=== PATIENT | male | born 1935 | race Caucasian/White ===

== ENCOUNTER → 2020-04-30 15:41 | Outpatient (CLI) | payer MEDICARE, SELFPAY ==
[2020-04-30 17:47] LABS: Absolute Lymphocyte Count 2.12 X10^3/uL (0.83-4.51); Absolute Neutrophil Count 3.6 X10^3/uL (2.0-7.7); Basophil# 0.07 X10^3/uL; Eosinophil# 0.33 X10^3/uL; Eosinophils% 4.9 % (0-5); Hematocrit 42.1 % (40-54); Hemoglobin 13.3 g/dL (13.0-16.5); Lymphocyte # 2.12 X10^3/ul (4.0); Lymphocyte % 31.8 % (19-41); Mean Corp Hgb Conc 31.6 g/dL (32-36); Mean Corpuscular Hgb 31.3 pg (27.0-32.0); Mean Corpuscular Volume 99.1 fL (80-94); Mean Platelet Vol. 10.9 fl (6.2-12.0); Monocyte# 0.52 X10^3/uL; Monocyte% 7.8 % (0-10); NRBC Flagged by Analyzer 0 % (0-5); Neutrophil # 3.59 X10^3/uL (2.7-7.7); Neutrophil % 53.9 % (47-70); Platelet Count 227 K/mm3 (150-450); RBC Distribution Width CV 14.1 % (11.6-14.6); RBC Distribution Width SD 51.6 fl (35.1-43.9); Red Blood Count 4.25 M/mm3 (4.6-6.2); White Blood Count 6.7 K/mm3 (4.4-11.0)
[2020-04-30 18:00] LABS: ALB/GLOB Ratio 1.1 RATIO (0.9-2.4); AST(SGOT) 10 U/L (15-37); Alanine Aminotransfer ALT/SGPT 16 U/L (16-61); Albumin, Serum 3.7 g/dL (3.2-5.0); Alkaline Phosphatase 71 U/L (45-117); Anion Gap 5 (5-15); BUN 29 mg/dL (7-18); BUN/Creat Ratio 19.9 RATIO (10-20); Calcium,Total 8.7 mg/dL (8.5-10.1); Chloride 106 mmol/L (98-107); Creatinine, Serum 1.46 mg/dL (0.70-1.30); EST Glomerular Filtration Rate 49 mL/min (>60); Est Glom Filt Rate - Afr Amer 59 mL/min (>60); Globulin 3.5 g/dL (2.2-4.2); Glucose 158 mg/dL (74-106); PSA,Total - Annual Screen 8.77 ng/mL (0.00-4.00); Potassium 4.3 mmol/L (3.5-5.1); Protein, Total 7.2 g/dL (6.4-8.2); Sodium Level 139 mmol/L (136-145); Thyroid Stim Hormone (TSH) 3.16 uIU/mL (0.358-3.74)
[2020-04-30 18:01] LABS: Vitamin D,25 Hydroxy 39.4 ng/mL
== END ==
PROVIDERS: Visit Provider Family Medicine Geriatric Medicine
DX: E55.9 Vitamin D deficiency, unspecified (principal); R53.83 Other fatigue; Z12.5 Encounter for screening for malignant neoplasm of prostate
CPT/HCPCS: 36415; 80053; 82306; 84153; 84443; 85025; G0103

== ENCOUNTER 2020-09-13 11:28 | Outpatient (RCR) | payer MEDICARE, SELFPAY | END 2020-09-13 23:59 | LOC: IMMUN 11:28 | PROVIDERS: PCP Family Medicine Geriatric Medicine; Visit Provider Family Medicine | DX: Z23 Encounter for immunization (principal) | CPT/HCPCS: 0011A; 0012A ==

== ENCOUNTER 2020-11-30 21:48 | Emergency (ER) | payer MEDICARE, SELFPAY ==
[2020-11-30 21:49] VITALS: BP 168/93; PULSE 85; RESP 16; TEMP 36.2; O2SAT 96; BMI 31.3
--- NOTE | 2020-11-30 22:02 | ED.VIS.GEN ---
History of Present Illness Chief Complaint: GI Bleed Informant: Patient Onset: Today Context: Sudden Onset Timing: Continuous Current Severity: Moderate Maximum Severity: Moderate Narrative: Patient is an 85-year-old male who is on aspirin and Plavix for history of coronary vascular disease, hypertension, hyperlipidemia, who presents to the emergency department with bright red blood per rectum. Patient states that he had steak this evening. He states that he suddenly got some cramping pain in his abdomen. He then had a large bowel movement that was bright red blood. He states it happened again an hour later. He denies being lightheaded. He denies any fevers or chills. He has been compliant with all his medications. He states he is never had a colonoscopy. He does not think he had prior abdominal surgery. He states because it happened twice, he presented here for further evaluation. Prior similar symptoms: No Recent Illness/Hospitalization: No Past Medical History - Allergies and Home Meds Allergies/Adverse Reactions: Allergies simvastatin Allergy (Verified 11/30/20 21:52) PT UNSURE OF REACTION Primary Care Physician: Klaus Fagan Chi, MD [Primary Care Provider] - Prior records reviewed: Yes Past Medical History: - - Hypertension, hyperlipidemia, coronary vascular disease Surgical History: noncontributory Smoking Status: Former smoker Review of Systems General: Denies: Chills, Fever, Sweats Eyes: Denies: Visual changes - bilaterally, Diplopia ENT: Denies: Rhinorrhea, Sore throat Cardiovascular: Denies: Chest pain, Palpitations Respiratory: Denies: Dyspnea, Cough, Dyspnea on exertion Gastrointestinal: Reports: Abdominal pain, Hematochezia. Denies: Nausea, Vomiting, Diarrhea, Melena Genitourinary: Denies: Dysuria, Hematuria, Frequency Musculoskeletal: Denies: Back pain, Extremity Pain Skin: Denies: Rash, Wounds Neurological: Denies: Headache, Weakness, Numbness Physical Exam Vital Signs/Narrative: Vital Signs Temp Pulse Resp BP Pulse Ox 11/30/20 21:49 97.1 F L 85 16 168/93 H 96 Inital Vital Signs reviewed: Yes General: Well nourished, Well developed, No Acute Distress Head: Normocephalic, Atraumatic Eyes: Perrl, EOMI ENT: Moist mucous membranes, No rhinorrhea Neck: Supple, Nontender Cardiovascular: Regular rate, Regular rhythm, No murmurs Respiratory: No distress, CTA bilaterally, Chest nontender Abdomen: Soft, Nontender, Nondistended, Normal bowel sounds Rectal: - - Gross red blood visible at the rectum. No active bleeding. Back: Nontender, Normal Inspection Extremities: Nontender, No edema Skin: Normal color, No rash Neurological: Alert, Oriented x3, Cranial nerves II-XII grossly intact, Normal Strength, Normal Sensation Psychological: Normal affect, Normal Mood Diagnostic/Tx/Re-eval Clinical Impression(s) from Imaging Studies Abdomen CTA 11/30/20 22:24 ADDENDUM: 12/01/20 0003 Abnormal Lab Results 11/30/20 11/30/20 11/30/20 22:05 22:05 22:05 WBC 7.2 RBC 4.53 L Hgb 13.6 Hct 43.3 MCV 95.6 H MCH 30.0 MCHC 31.4 L RDW Std Deviation 47.3 H RDW Coeff of Paulie 13.2 Plt Count 230 MPV 10.7 Immature Gran % (Auto) 0.400 Neut % (Auto) 50.3 Lymph % (Auto) 34.3 Drew % (Auto) 7.0 Eos % (Auto) 6.6 H Baso % (Auto) 1.4 H Absolute Neuts (auto) 3.6 Absolute Lymphs (auto) 2.46 Nucleated RBC % 0 PT 12.8 INR 1.0 APTT 28.7 Sodium 141 Potassium 4.0 Chloride 108 H Carbon Dioxide 28.0 Anion Gap 5 BUN 22 H Creatinine 1.37 H Estim Creat Clear Calc 36.86 Est GFR (MDRD) Af Amer 63 Est GFR (MDRD) Non-Af 52 L BUN/Creatinine Ratio 16.1 Glucose 129 H Lactic Acid Calcium 8.9 Total Bilirubin 0.50 AST 8 L ALT 11 L Alkaline Phosphatase 61 Total Protein 6.9 Albumin 3.6 Globulin 3.3 Albumin/Globulin Ratio 1.1 Blood Type Antibody Screen 11/30/20 11/30/20 22:05 22:05 WBC RBC Hgb Hct MCV MCH MCHC RDW Std Deviation RDW Coeff of Paulie Plt Count MPV Immature Gran % (Auto) Neut % (Auto) Lymph % (Auto) Drew % (Auto) Eos % (Auto) Baso % (Auto) Absolute Neuts (auto) Absolute Lymphs (auto) Nucleated RBC % PT INR APTT Sodium Potassium Chloride Carbon Dioxide Anion Gap BUN Creatinine Estim Creat Clear Calc Est GFR (MDRD) Af Amer Est GFR (MDRD) Non-Af BUN/Creatinine Ratio Glucose Lactic Acid 3.1 H* Calcium Total Bilirubin AST ALT Alkaline Phosphatase Total Protein Albumin Globulin Albumin/Globulin Ratio Blood Type O POSITIVE Antibody Screen NEGATIVE - Medical Decision Making The patient did have a large bloody bowel movement here in the emergency department. It was mostly blood with clots mixed with some loose stool. In review the patient's records, there was some question of AAA. With this in his bright red blood per rectum, I did want to rule out fistula. Screening labs were obtained. The patient's counts are normal. His pressure and heart rate have been stable. He does have a lactic acidosis and is given 2 L of fluids. Type and screen were obtained. Patient underwent CTA. This does show evidence of active contrast extravasation in the left lower colon. As the patient is on anticoagulants with brisk bleeding, and concern for arterial involvement, I do feel that he is going to require higher level of care. Patient was discussed with transfer line and [facility]. He will be transferred to the intensive care unit. He has remained stable during his stay, but obviously is a high risk for decompensation given anticoagulant use and suspected arterial GI bleed. Impression 1. Brisk lower GI bleed 2. Lactic acidosis - Critical Care Time Critical care time (excluding procedures): 30-74 minutes, Discussing w/Patient &/or Family/Offset Machine Operator, Discussing w/Consultants, Arranging Admission or Transfer, Performing Direct Patient Care at Bedside ED Disposition - Plan for ED Patient: Referrals: Klaus Fagan Chi, MD [Primary Care Provider] -
[2020-11-30] MEDS: Ondansetron 4 MG/2 ML Vial IV (22:09)
[2020-11-30] MEDS: 0.9% Normal Saline 1,000 ML 1000 ML IV (22:10)
--- NOTE | 2020-11-30 22:24 | CT_ITS ---
We are attempting to reach an attending provider to discuss findings. An addendum with communication details will be sent when the communication is complete. STUDY: CTA OF THE ABDOMINAL AORTA AND BILATERAL LOWER EXTREMITIES REASON FOR EXAM: Male, 85 years old. gi bleed, h/o aaa RADIATION DOSAGE (If Supplied By Facility): CTDIvol = ( 27.84 ) mGy, DLP = ( 1064.88 ) mGycm TECHNIQUE: Axial CT angiography multi-detector data acquisition was obtained from the diaphragm to the hips following intravenous administration of IV 100mL Isovue-370. Axial images and MIP images were reconstructed from the axial data set. Post-processing of the angiographic images was performed, with multiplanar reformation and 3D reconstruction. Individualized dose optimization techniques were used for this CT. TECHNICAL QUALITY: Good COMPARISON: None. Descriptors of Narrowing: None (0%) Mild (< 50%) Moderate (50-70%) Severe (70-90%) Subtotal/Total Occlusion (90-100%) Non-Evaluable (technically non-diagnostic FINDINGS: Radiodense contrast is noted within the left colon on image #116. The solid and hollow viscus is unremarkable except for nonspecific diarrheal disease with multiple air-fluid levels in the colon. Colonic diverticulosis is noted Abdominal aorta: No demonstrated narrowing. Celiac and superior mesenteric arteries: No demonstrated narrowing. Inferior mesenteric artery: No demonstrated narrowing. Right renal artery(arteries): No demonstrated narrowing. Left renal artery(arteries): No demonstrated narrowing. Right common iliac artery: No demonstrated narrowing. Right external iliac artery: No demonstrated narrowing. Right internal iliac artery: No demonstrated narrowing. Left common iliac artery: No demonstrated narrowing. Left external iliac artery: No demonstrated narrowing. Left internal iliac artery: No demonstrated narrowing. IMPRESSION: Possible acute GI bleed left colon. Specificity is limited without noncontrast and delayed imaging. An addendum will be performed if and when these become available. Normal abdominal aorta and bilateral lower extremity run-off without a hemodynamically significant stenosis. No evidence of an abdominal aortic aneurysm. Electronically Signed: Lacho Mario MD at 23:40 EDT , Service support , CT/CTA Abdomen W/WO Contrast
--- NOTE | 2020-11-30 22:24 | CT_ITS ---
STUDY: CTA OF THE ABDOMINAL AORTA AND BILATERAL LOWER EXTREMITIES REASON FOR EXAM: Male, 85 years old. gi bleed, h/o aaa RADIATION DOSAGE (If Supplied By Facility): CTDIvol = ( 27.84 ) mGy, DLP = ( 1064.88 ) mGycm TECHNIQUE: Axial CT angiography multi-detector data acquisition was obtained from the diaphragm to the hips following intravenous administration of IV 100mL Isovue-370. Axial images and MIP images were reconstructed from the axial data set. Post-processing of the angiographic images was performed, with multiplanar reformation and 3D reconstruction. Individualized dose optimization techniques were used for this CT. TECHNICAL QUALITY: Good COMPARISON: None. Descriptors of Narrowing: None (0%) Mild (< 50%) Moderate (50-70%) Severe (70-90%) Subtotal/Total Occlusion (90-100%) Non-Evaluable (technically non-diagnostic FINDINGS: Radiodense contrast is noted within the left colon on image #116. The solid and hollow viscus is unremarkable except for nonspecific diarrheal disease with multiple air-fluid levels in the colon. Colonic diverticulosis is noted Abdominal aorta: No demonstrated narrowing. Celiac and superior mesenteric arteries: No demonstrated narrowing. Inferior mesenteric artery: No demonstrated narrowing. Right renal artery(arteries): No demonstrated narrowing. Left renal artery(arteries): No demonstrated narrowing. Right common iliac artery: No demonstrated narrowing. Right external iliac artery: No demonstrated narrowing. Right internal iliac artery: No demonstrated narrowing. Left common iliac artery: No demonstrated narrowing. Left external iliac artery: No demonstrated narrowing. Left internal iliac artery: No demonstrated narrowing. IMPRESSION: Possible acute GI bleed left colon. Specificity is limited without noncontrast and delayed imaging. An addendum will be performed if and when these become available. Normal abdominal aorta and bilateral lower extremity run-off without a hemodynamically significant stenosis. No evidence of an abdominal aortic aneurysm. N.B. : The above information has been verbally conveyed by Lacho Mario MD to Paulo Coulter MD, on 11/30/2020 23:56:46 (ET). Electronically Signed: Lacho Mario MD at 23:40 EDT , Service support , CT/CTA Pelvis W/WO Contrast
[2020-11-30 22:39] LABS: Prothrombin Time (Protime)PT. 12.8 SECONDS (11.7-14.9)
[2020-11-30 22:40] LABS: Partial Thromboplast Time 28.7 Seconds (24.1-36.2)
[2020-11-30 22:41] LABS: Absolute Lymphocyte Count 2.46 X10^3/uL (0.83-4.51); Absolute Neutrophil Count 3.6 X10^3/uL (2.0-7.7); Basophil% 1.4 % (0-1); Eosinophil# 0.47 X10^3/uL; Eosinophils% 6.6 % (0-5); Hematocrit 43.3 % (40-54); Hemoglobin 13.6 g/dL (13.0-16.5); Lymphocyte # 2.46 X10^3/ul (0.83-4.51); Lymphocyte % 34.3 % (19-41); Mean Corp Hgb Conc 31.4 g/dL (32-36); Mean Corpuscular Volume 95.6 fL (80-94); Mean Platelet Vol. 10.7 fl (6.2-12.0); NRBC Flagged by Analyzer 0 % (0-5); Neutrophil # 3.61 X10^3/uL (2.7-7.7); Neutrophil % 50.3 % (47-70); Platelet Count 230 K/mm3 (150-450); RBC Distribution Width CV 13.2 % (11.6-14.6); RBC Distribution Width SD 47.3 fl (35.1-43.9); Red Blood Count 4.53 M/mm3 (4.6-6.2); White Blood Count 7.2 K/mm3 (4.4-11.0)
[2020-11-30 22:47] LABS: ALB/GLOB Ratio 1.1 RATIO (0.9-2.4); AST(SGOT) 8 U/L (15-37); Alanine Aminotransfer ALT/SGPT 11 U/L (16-61); Albumin, Serum 3.6 g/dL (3.2-5.0); Alkaline Phosphatase 61 U/L (45-117); Anion Gap 5 (5-15); BUN 22 mg/dL (7-18); BUN/Creat Ratio 16.1 RATIO (10-20); Calcium,Total 8.9 mg/dL (8.5-10.1); Chloride 108 mmol/L (98-107); Creatinine, Serum 1.37 mg/dL (0.70-1.30); EST Glomerular Filtration Rate 52 mL/min (>60); Est Glom Filt Rate - Afr Amer 63 mL/min (>60); Estimated Creatinine Clearance 36.86 ml/min; Globulin 3.3 g/dL (2.2-4.2); Glucose 129 mg/dL (74-106); Protein, Total 6.9 g/dL (6.4-8.2); Sodium Level 141 mmol/L (136-145)
[2020-11-30 23:08] LABS: Lactic Acid 3.1 mmol/L (0.4-1.9)
[2020-11-30 23:48] VITALS: BP 156/72; PULSE 81; RESP 17; O2SAT 99
[2020-12-01] MEDS: 0.9% Normal Saline 1,000 ML 999 ML IV
[2020-12-01 01:49] VITALS: BP 156/88; PULSE 80; RESP 14; O2SAT 98
[2020-12-01 02:19] LABS: Reflex Lactate? Y
== END 2020-12-01 01:50 | disposition home or self-care (01) ==
PROVIDERS: Emergency Provider Emergency Medicine; PCP Family Medicine Geriatric Medicine
DX: K92.2 Gastrointestinal hemorrhage, unspecified (principal); E87.2 Acidosis; Z87.891 Personal history of nicotine dependence; Z79.82 Long term (current) use of aspirin
CPT/HCPCS: 72191; 74175; 80053; 83605; 85025; 85610; 85730; 86850; 86900; 86901; 87426; 96361; 96374; 99285; J7030; Q9967; A4216; J2405

== ENCOUNTER → 2020-12-09 11:00 | Outpatient (CLI) | payer MEDICARE, SELFPAY ==
[2020-11-30 21:49] VITALS: BMI 31.3
[2020-12-09 11:37] LABS: Absolute Lymphocyte Count 1.33 X10^3/uL (0.83-4.51); Absolute Neutrophil Count 5.4 X10^3/uL (2.0-7.7); Basophil# 0.07 X10^3/uL; Basophil% 0.9 % (0-1); Eosinophil# 0.33 X10^3/uL; Eosinophils% 4.3 % (0-5); Hematocrit 26.9 % (40-54); Hemoglobin 8.4 g/dL (13.0-16.5); Lymphocyte # 1.33 X10^3/ul (0.83-4.51); Lymphocyte % 17.2 % (19-41); Mean Corp Hgb Conc 31.2 g/dL (32-36); Mean Corpuscular Hgb 30.4 pg (27.0-32.0); Mean Corpuscular Volume 97.5 fL (80-94); Mean Platelet Vol. 10.5 fl (6.2-12.0); Monocyte# 0.61 X10^3/uL; Monocyte% 7.9 % (0-10); NRBC Flagged by Analyzer 0 % (0-5); Neutrophil # 5.36 X10^3/uL (2.7-7.7); Neutrophil % 69.1 % (47-70); Platelet Count 334 K/mm3 (150-450); RBC Distribution Width CV 13.7 % (11.6-14.6); RBC Distribution Width SD 48.4 fl (35.1-43.9); Red Blood Count 2.76 M/mm3 (4.6-6.2); White Blood Count 7.8 K/mm3 (4.4-11.0)
== END ==
PROVIDERS: PCP Family Medicine Geriatric Medicine; Visit Provider Family Medicine Geriatric Medicine
DX: K92.2 Gastrointestinal hemorrhage, unspecified (principal)
CPT/HCPCS: 36415; 85025

== ENCOUNTER → 2020-12-12 07:59 | Outpatient (CLI) | payer MEDICARE, SELFPAY ==
[2020-11-30 21:49] VITALS: BMI 31.3
[2020-12-12] VITALS (9 sets, daily range): BP systolic 111–146; BP diastolic 50–88; PULSE 59–89; RESP 16; TEMP 36.1–36.8; O2SAT 93–98; BMI 30.7
[2020-12-12] MEDS: 0.9% NaCl Peripheral Flush Adult/Peds IV (08:32)
[2020-12-12] MEDS: Furosemide 20 MG/2 ML VIAL IV (11:58)
== END ==
PROVIDERS: PCP Family Medicine Geriatric Medicine; Referring Provider Family Medicine Geriatric Medicine; Visit Provider Family Medicine Geriatric Medicine
DX: D64.9 Anemia, unspecified (principal)
CPT/HCPCS: 36415; 36430; 86850; 86900; 86901; 86920; 86922; J7040; P9016; A4216; J1940

== ENCOUNTER → 2021-05-01 10:03 | Outpatient (CLI) | payer MEDICARE, SELFPAY ==
[2021-05-01 12:17] LABS: Absolute Lymphocyte Count 2.45 X10^3/uL (0.83-4.51); Absolute Neutrophil Count 3.1 X10^3/uL (2.0-7.7); Basophil# 0.07 X10^3/uL; Basophil% 1.1 % (0-1); Eosinophil# 0.33 X10^3/uL; Eosinophils% 5.2 % (0-5); Hematocrit 35.5 % (40-54); Hemoglobin 11.1 g/dL (13.0-16.5); Lymphocyte # 2.45 X10^3/ul (0.83-4.51); Lymphocyte % 38.6 % (19-41); Mean Corp Hgb Conc 31.3 g/dL (32-36); Mean Corpuscular Hgb 28.6 pg (27.0-32.0); Mean Corpuscular Volume 91.5 fL (80-94); Mean Platelet Vol. 10.7 fl (6.2-12.0); Monocyte# 0.43 X10^3/uL; Monocyte% 6.8 % (0-10); NRBC Flagged by Analyzer 0 % (0-5); Neutrophil # 3.05 X10^3/uL (2.7-7.7); POSITIVE MORPHOLOGY YES; Platelet Count 203 K/mm3 (150-450); RBC Distribution Width CV 22.4 % (11.6-14.6); RBC Distribution Width SD 74.3 fl (35.1-43.9); Red Blood Count 3.88 M/mm3 (4.6-6.2); White Blood Count 6.4 K/mm3 (4.4-11.0)
[2021-05-01 12:20] LABS: Differential Indicated SCAN CRITERIA MET
[2021-05-01 12:55] LABS: Vitamin D,25 Hydroxy 72.1 ng/mL
[2021-05-01 12:56] LABS: ALB/GLOB Ratio 0.8 RATIO (0.9-2.4); AST(SGOT) 8 U/L (15-37); Alanine Aminotransfer ALT/SGPT 9 U/L (16-61); Albumin, Serum 2.9 g/dL (3.2-5.0); Alkaline Phosphatase 69 U/L (45-117); Anion Gap 1 (5-15); Anisocytosis 2+; BUN 26 mg/dL (7-18); BUN/Creat Ratio 19.1 RATIO (10-20); Calcium,Total 8.6 mg/dL (8.5-10.1); Chloride 110 mmol/L (98-107); Creatinine, Serum 1.36 mg/dL (0.70-1.30); Differential Comment SCANNED; EST Glomerular Filtration Rate 53 mL/min (>60); Est Glom Filt Rate - Afr Amer 64 mL/min (>60); Globulin 3.7 g/dL (2.2-4.2); Glucose 229 mg/dL (74-106); Macrocytosis 1+; Microcytosis 1+; Potassium 4.2 mmol/L (3.5-5.1); Protein, Total 6.6 g/dL (6.4-8.2); Sodium Level 140 mmol/L (136-145); Thyroid Stim Hormone (TSH) 1.68 uIU/mL (0.358-3.74)
== END ==
PROVIDERS: PCP Family Medicine Geriatric Medicine; Visit Provider Family Medicine Geriatric Medicine
DX: E11.65 Type 2 diabetes mellitus with hyperglycemia (principal); E55.9 Vitamin D deficiency, unspecified; I10 Essential (primary) hypertension
CPT/HCPCS: 36415; 80053; 82306; 84443; 85025

== ENCOUNTER 2021-08-30 19:34 | Emergency (ER) | payer MEDICARE, SELFPAY ==
[2021-08-30 19:36] VITALS: BP 164/83; PULSE 64; RESP 16; TEMP 36.4; O2SAT 98; BMI 29.8
--- NOTE | 2021-08-30 20:20 | EX.ED.GUMALE ---
HPI History of Present Illness Chief Complaint: Male Pain/Injury Detail of Chief Complaint: Gross hematuria Informant: patient and spouse/S.O. Pain Onset: Today Timing: Intermittent Current Severity: Mild Maximum Severity: Mild Appearance Lesion(s): No Genital Edema: No Narrative Narrative: 86-year-old male history of [place], cardiac stent and diabetes. He used to be on Plavix but that was stopped a year ago. He does take a daily aspirin. Today around 4 PM he noticed gross hematuria. Again at 7 PM. States he is able to urinate so the urine is yellow. Denies any pain. He has had no recent bladder or urethral procedures. He has never had gross hematuria before. Denies any recent bruising, nosebleeds or bleeding from his gums. Prior similar symptoms: No Recent Illness/Hospitalization: No PFSH PFSH Medical History (Updated 08/30/21 @ 22:[address] Tres Rosado MD) Benign prostatic hyperplasia Diabetes Myocardial infarct Home Medications aspirin 81 mg PO DAILY@0800 11/30/20 [History Last Taken Unknown] clopidogrel 75 mg PO DAILY 11/30/20 [History Last Taken Unknown] ciprofloxacin HCl [Cipro] 500 mg PO BID 10 Days #20 tab 08/30/21 [Rx Last Taken Unknown] Allergy/AdvReac Type Severity Reaction Status Date / Time simvastatin Allergy PT UNSURE Verified 08/30/21 19:35 OF REACTION Surgical History (Updated 08/30/21 @ 20:41 by Lisa Cardona) History of coronary artery stent placement Social History Smoking Status: Former smoker ROS ROS ED ROS Narrative Denies any recent illness. Review of Systems ROS Unobtainable: Denies due to encephalopathy Constitutional Constitutional ED: Denies fever(s) Eyes Eyes: Denies change in vision ENT ENT ED: Denies ear pain Cardiovascular Cardiovascular: Denies chest pain Respiratory/Chest Respiratory/Chest: Denies cough or dyspnea Gastrointestinal Gastrointestinal: Denies abdominal pain, diarrhea, nausea or vomiting Genitourinary Genitourinary ED: Reports hematuria; Denies dysuria or urinary frequency Integumentary Denies rash Neurologic Neurologic: Denies headache(s) Psychiatric Psychiatric: Denies depression Endocrine Endocrinology: Denies polyuria Hematologic/Lymphatic Hematologic/Lymphatic: Denies easy bruising Allergic/Immunologic Allergic/Immunologic ED: Denies urticaria EXAM Physical Exam Narrative Exam Narrative: 86-year-old male no acute distress. Vital signs are stable and afebrile. He is in no distress. H EENT exam unremarkable. Lungs are clear. Heart regular rhythm. Abdomen soft and nontender. Normal bowel sounds no peritoneal signs. He has no suprapubic tenderness and I do not feel a distended bladder. External exam is unremarkable. There is no gross blood from his urethra. He is circumcised. Moving all 4 extremities. Nontender. No edema. Neurologically is awake and alert. Const Vital Signs: 08/30/21 19:36 Temperature 97.5 F L Temperature Source Temporal Pulse Rate 64 Respiratory Rate 16 Blood Pressure 164/83 H Blood Pressure Mean 110 Pulse Ox 98 Oxygen Delivery Method Room Air Positive well nourished and well developed; Negative for obese, cachectic, contractures or unkempt General Appearance ED: well developed and NAD; Negative for unkempt, cachectic, contractures or pallor Nutritional Appearance: Negative for cachectic or obese HEENT Reports moist mucous membranes normocephalic and atraumatic; Negative for trauma or tenderness Eyes PERRL and EOMs intact bilaterally General Eye ED: Negative for pale conjunctiva or scleral icterus Neck no lymphadenopathy, supple and no JVD General: Negative for tenderness Resp normal respiratory effort and clear to auscultation bilaterally Auscultation: Negative for rales, rhonchi or wheezes Cardio regular rate, regular rhythm, S1 normal heart sound, S2 normal heart sound and no murmurs GI non-tender, non-distended and no masses Auscultation: normoactive bowel sounds; Negative for hyperactive bowel sounds or hypoactive bowel sounds Palpation: soft; Negative for hepatomegaly or splenomegaly Rectal Exam: Negative for tenderness no CVA tenderness Bladder / Kidney Exam: No CVA tenderness Groin / Perineum Exam: Negative for lesions Penis: normal penis and circumcised; Negative for uncircumcised, condyloma, corporal disruption, ecchymosis, edematous, erythema, mass, nodule, papules, pustules or vesicles Meatus: meatus normal Back/Spine no CVA tenderness General Back: Negative for CVA tenderness Cervical Spine: Negative for cervical spine tenderness Thoracic Spine / Upper Back: Negative for thoracic spinal tenderness Extremity normal to inspection General Extremety ED: Negative for edema or tenderness General Extremity: Negative for edema Neuro oriented x3 and moves all extremities Sensorium / Orientation: alert, oriented to person, oriented to place and oriented to time Motor Exam: strength 5/5 throughout Psych mental status grossly normal Appearance: Negative for unkempt Attitude: No agitated Mood & Affect: Negative for depressed or tearful Thought Process: No normal thought process Skin General Skin Exam: Negative for jaundice or pallor Lesions: no lesions Rashes: no rashes MDM MDM MDM Narrative Medical decision making narrative: 86-year-old male with gross blood from his meatus. No prior history. Other than aspirin he is on no other blood thinners. We will obtain a bladder scan given and clinically it sounds like he is not having urinary retention. Place of [place] irrigated out. Check a UA, CBC and chemistry panel. Exam is benign. Repeat exam patient is doing well at 10:45 PM. I went over all the test results with the patient and his . He will be given 1 p.o. Cipro here prior to discharge. Outpatient follow-up with Dr. Leif Castanon of urology or the patient's primary care physician Dr. Fagan. We talked about if he develops any trouble urinating he needs to return. Also he may need follow-up cystoscopy due to hematuria. Lab Data Attestation: I reviewed the patient's lab results. Lab results narrative: CBC shows a white count of 7. Hemoglobin 12.9. Hematocrit 40. Platelets 190. Electrolytes unremarkable gap is 6. BUN 31 creatinine 1.54. These are consistent with prior labs. Urinalysis showed positive nitrites. 10-25 white cells and 3+ bacteria. Consistent with a urinary tract infection. A urine culture will be sent. Bladder scan was unremarkable for any signs of urinary retention. He only had 95 cc of urine in his bladder. Labs: Laboratory Results - last 24 hr 08/30/21 08/30/21 08/30/21 20:36 20:36 21:27 WBC 7.0 RBC 4.29 L Hgb 12.9 L Hct 40.7 MCV 94.9 H MCH 30.1 MCHC 31.7 L RDW Std Deviation 52.0 H RDW Coeff of Paulie 14.9 H Plt Count 190 MPV 10.0 Sodium 141 Potassium 4.1 Chloride 109 H Carbon Dioxide 26.0 Anion Gap 6 BUN 31 H Creatinine 1.54 H Estim Creat Clear Calc 32.19 Est GFR (MDRD) Af Amer 55 L Est GFR (MDRD) Non-Af 46 L BUN/Creatinine Ratio 20.1 H Glucose 154 H Calcium 9.0 Urine Color Yellow Urine Clarity Sl. Cloudy Urine pH 7.0 Ur Specific [place] 1.010 Urine Protein 30 H Urine Glucose (UA) Normal Urine Ketones Negative Urine Occult Blood 50 H Urine Nitrite Positive H Urine Bilirubin Negative Urine Urobilinogen Normal Ur Leukocyte Esterase 500 H Urine RBC 0 SEEN Urine WBC 10-25 SEEN Ur Squamous Epith Cells 0 SEEN Urine Bacteria 3+ Urine Mucus 0 SEEN Discharge Plan Triage Chief Complaint: Male Pain/Injury ED Provider: Tres Rosado Dx/Rx/DC Orders Clinical Impression: Acute UTI, Hematuria Prescriptions: New ciprofloxacin HCl [Cipro] 500 mg tablet 500 mg PO BID 10 Days Qty: 20 RF: 0 No Action clopidogrel 75 MG tablet 75 mg PO DAILY RF: 0 aspirin 81 MG tablet,chewable 81 mg PO DAILY@0800 RF: 0 Primary Care Provider: Klaus Fagan Chi Referrals: Rush Castanon MD [STAFF PHYSICIAN] - 1-2 Weeks Klaus Fagan Chi, MD [Primary Care Provider] - 1 Week Activity Restrictions/Additional Instructions: You have a urinary tract infection which is causing you to have bleeding. Make sure you are drinking plenty of water. If you develop heavy bleeding with significant clots or you are unable to urinate you need to return. Start the antibiotic Cipro which will treat a urinary tract infection you will take 1 pill twice a day for 10 days. A urine culture was sent. You need to either follow-up with the [facility], Dr. Fagan or a urologist like Dr. Leif Castanon to make sure your urinary tract infection is clearing up. Also they may need to do a scope of your urinary bladder to make sure there is nothing else causing the bleeding. Disposition Disposition: Home, Self Care
[2021-08-30 20:44] LABS: Hematocrit 40.7 % (40-54); Hemoglobin 12.9 g/dL (13.0-16.5); Mean Corp Hgb Conc 31.7 g/dL (32-36); Mean Corpuscular Hgb 30.1 pg (27.0-32.0); Mean Corpuscular Volume 94.9 fL (80-94); Platelet Count 190 K/mm3 (150-450); RBC Distribution Width CV 14.9 % (11.6-14.6); Red Blood Count 4.29 M/mm3 (4.6-6.2)
[2021-08-30 20:58] LABS: Anion Gap 6 (5-15); BUN 31 mg/dL (7-18); BUN/Creat Ratio 20.1 RATIO (10-20); Chloride 109 mmol/L (98-107); Creatinine, Serum 1.54 mg/dL (0.70-1.30); EST Glomerular Filtration Rate 46 mL/min (>60); Est Glom Filt Rate - Afr Amer 55 mL/min (>60); Estimated Creatinine Clearance 32.19 ml/min; Glucose 154 mg/dL (74-106); Potassium 4.1 mmol/L (3.5-5.1); Sodium Level 141 mmol/L (136-145)
[2021-08-30 21:31] LABS: Mucous, Urine 0 SEEN /hpf (<or=2+); Red Blood Cells-Urine 0 SEEN /hpf (0-5); Squamous Epithelial Cells - UA 0 SEEN /hpf (0-5)
[2021-08-30 22:02] LABS: Color, Urine Yellow (Yellow); Glucose, Dipstick Normal (Normal); Ketone-Dipstick Negative (Negative); Leukocyte Esterase-Dipstick 500 /ul (Negative); Nitrite-Dipstick Positive (Negative); Occult Blood-Urine 50 /ul (Negative); Protein-Dipstick 30 mg/dl (Negative); Urine Bilirubin Dipstick Negative (Negative); Urine Clarity Sl. Cloudy (Clear); Urine Urobilinogen Normal (Normal)
[2021-08-30 22:10] LABS: Bacteria 3+ /hpf (None Seen); White Blood Cells 10-25 SEEN /hpf (0-5)
[2021-08-30] MEDS: Ciprofloxacin 500 MG Tablet PO (23:05)
[2021-08-30 23:06] VITALS: RESP 16
== END 2021-08-30 23:06 | disposition home or self-care (01) ==
PROVIDERS: Emergency Provider Emergency Medicine; PCP Family Medicine Geriatric Medicine; Visit Provider Emergency Medicine
DX: N39.0 Urinary tract infection, site not specified (principal); R31.9 Hematuria, unspecified; I25.2 Old myocardial infarction; Z87.891 Personal history of nicotine dependence; Z79.82 Long term (current) use of aspirin
CPT/HCPCS: 80048; 81001; 85027; 87077; 87086; 87088; 87186; 99283

== ENCOUNTER 2021-10-29 10:50 | Outpatient (CLI) | payer MEDICARE, SELFPAY ==
[2021-10-29 12:26] LABS: Absolute Lymphocyte Count 2.61 X10^3/uL (0.83-4.51); Absolute Neutrophil Count 3.7 X10^3/uL (2.0-7.7); Basophil# 0.07 X10^3/uL; Eosinophil# 0.36 X10^3/uL; Eosinophils% 4.9 % (0-5); Hematocrit 41.3 % (40-54); Hemoglobin 13.1 g/dL (13.0-16.5); Lymphocyte # 2.61 X10^3/ul (0.83-4.51); Lymphocyte % 35.8 % (19-41); Mean Corp Hgb Conc 31.7 g/dL (32-36); Mean Corpuscular Hgb 30.3 pg (27.0-32.0); Mean Corpuscular Volume 95.4 fL (80-94); Mean Platelet Vol. 10.7 fl (6.2-12.0); Monocyte% 6.9 % (0-10); NRBC Flagged by Analyzer 0 % (0-5); Neutrophil # 3.73 X10^3/uL (2.7-7.7); Neutrophil % 51.1 % (47-70); Platelet Count 187 K/mm3 (150-450); RBC Distribution Width CV 13.8 % (11.6-14.6); RBC Distribution Width SD 48.3 fl (35.1-43.9); Red Blood Count 4.33 M/mm3 (4.6-6.2); White Blood Count 7.3 K/mm3 (4.4-11.0)
[2021-10-29 12:41] LABS: Vitamin D,25 Hydroxy 72.2 ng/mL
[2021-10-29 12:59] LABS: AST(SGOT) 8 U/L (15-37); Alanine Aminotransfer ALT/SGPT 13 U/L (16-61); Albumin, Serum 3.3 g/dL (3.2-5.0); Alkaline Phosphatase 69 U/L (45-117); Anion Gap 5 (5-15); BUN 24 mg/dL (7-18); BUN/Creat Ratio 15.1 RATIO (10-20); Calcium,Total 9.3 mg/dL (8.5-10.1); Chloride 107 mmol/L (98-107); Creatinine, Serum 1.59 mg/dL (0.70-1.30); EST Glomerular Filtration Rate 44 mL/min (>60); Est Glom Filt Rate - Afr Amer 53 mL/min (>60); Globulin 3.3 g/dL (2.2-4.2); Glucose 147 mg/dL (74-106); Potassium 4.3 mmol/L (3.5-5.1); Protein, Total 6.6 g/dL (6.4-8.2); Sodium Level 140 mmol/L (136-145); Thyroid Stim Hormone (TSH) 1.84 uIU/mL (0.358-3.74)
== END 2021-10-29 23:59 | disposition home or self-care (01) ==
LOC: POLAB3 10:51
PROVIDERS: PCP Family Medicine Geriatric Medicine; Visit Provider Family Medicine Geriatric Medicine
DX: E11.65 Type 2 diabetes mellitus with hyperglycemia (principal); E55.9 Vitamin D deficiency, unspecified; I10 Essential (primary) hypertension
CPT/HCPCS: 36415; 80053; 82306; 84443; 85025

== ENCOUNTER → 2021-12-15 | Outpatient (CLI) | payer MEDICARE, SELFPAY ==
--- NOTE | 2021-12-15 11:50 | RAD_ITS ---
STUDY: X-RAY CHEST REASON FOR EXAM: Male, 86 years old. COUGH TECHNIQUE: PA and lateral views of the chest. COMPARISON: None. FINDINGS: The lungs are clear and expanded. No acute pulmonary infiltrates or peribronchial cuffing. There is no demonstrated pleural abnormality. Upper normal size heart. Normal mediastinum and ramy. Normal visualized pulmonary arteries. Thoracic aorta is minimally elongated. No acute osseous abnormality. Surgical clips are seen in the right upper quadrant, consistent with prior cholecystectomy. No pneumoperitoneum. RAD/Chest PA and Lateral IMPRESSION: No acute cardiopulmonary disease process identified. Electronically Signed: Jason Sun MD at 6:24 EDT ,
== END | disposition home or self-care (01) ==
LOC: RAD 11:26
PROVIDERS: PCP Family Medicine Geriatric Medicine; Visit Provider Family Medicine Geriatric Medicine
DX: R05.9 Cough, unspecified (principal)
CPT/HCPCS: 71046

== ENCOUNTER 2022-01-13 22:14 | Emergency (ER) | payer MEDICARE, SELFPAY ==
[2022-01-13 22:14] VITALS: BP 154/76; PULSE 60; RESP 17; TEMP 36.2; O2SAT 93; BMI 32.3
--- NOTE | 2022-01-13 22:48 | EDS_ITS ---
HPI History of Present Illness Chief Complaint: Laceration Detail of Chief Complaint: Left elbow Informant: patient Occured/Mechanism Mechanism/Context: Yes injury and Yes blunt trauma Onset/Context/Timing Onset: Today and Hours Context: Sudden Onset Timing: Continuous Current Severity: Mild Maximum Severity: Mild Associated Symptoms Associated Symptoms: Negative for Parasthesia, Weakness and Loss of Funtion Narrative Narrative: 86-year-old male as he was walking through a doorway moving things at home he struck his left elbow on an area in the door causing a laceration. No other injuries. He did not fall. He has normal range of motion. He is right- hand dominant. His tetanus is up-to-date. Tetanus Immunization: 5-10 years Prior similar symptoms: No Recent Illness/Hospitalization: No PFSH PFSH Medical History Benign prostatic hyperplasia Diabetes Lab test negative for COVID-19 virus Myocardial infarct Home Medications aspirin 81 mg PO DAILY@0800 11/30/20 [History Last Taken Unknown] clopidogrel 75 mg PO DAILY 11/30/20 [History Last Taken Unknown] ciprofloxacin HCl [Cipro] 500 mg PO BID 10 Days #20 tab 08/30/21 [Rx Last Taken Unknown] Allergy/AdvReac Type Severity Reaction Status Date / Time simvastatin Allergy PT UNSURE Verified 01/13/22 22:17 OF REACTION Surgical History History of coronary artery stent placement Social History Smoking Status: Former smoker ROS ROS ED ROS Narrative Denies recent illness. Review of Systems ROS Unobtainable: Denies due to encephalopathy Constitutional Constitutional ED: Denies fever(s) Eyes Eyes: Denies change in vision ENT ENT ED: Denies ear pain Cardiovascular Cardiovascular: Denies chest pain Respiratory/Chest Respiratory/Chest: Denies dyspnea Gastrointestinal Gastrointestinal: Denies abdominal pain, nausea or vomiting Genitourinary Genitourinary ED: Denies dysuria Musculoskeletal Musculoskeletal: Denies myalgias Integumentary Denies rash Neurologic Neurologic: Denies headache(s) Psychiatric Psychiatric: Denies depression Endocrine Endocrinology: Denies polyuria Hematologic/Lymphatic Hematologic/Lymphatic: Denies easy bruising Allergic/Immunologic Allergic/Immunologic ED: Denies urticaria EXAM Physical Exam Narrative Exam Narrative: 86-year-old male no acute distress vital signs stable afebrile. H EENT exam unremarkable atraumatic. Lungs clear to auscultation. Heart regular rhythm rate about 60 no murmur. Chest wall nontender. Abdomen soft nontender. Moving all 4 extremities. Neurovascular intact. Normal brattice builder strength. Normal dorsi plantar flexion. Left elbow lateral, dorsal aspect there is an L-shaped skin tear. No active bleeding. He has full flexion- extension of the elbow. Supination improved nation. No bony tenderness. No rmal brattice builder strength to his hand. I did explain to he and his this is a skin tear there is really no repair of this. Nurses will clean and dress the wound. Otherwise exam is benign. Const Vital Signs: 01/13/22 22:14 Temperature 97.1 F L Temperature Source Temporal Pulse Rate 60 Respiratory Rate 17 Blood Pressure 154/76 H Blood Pressure Mean 102 Pulse Ox 93 Oxygen Delivery Method Room Air Positive well nourished and well developed; Negative for obese, cachectic, contractures or unkempt General Appearance ED: well developed and NAD; Negative for unkempt, cachectic, contractures, cyanotic or diaphoretic Nutritional Appearance: Negative for cachectic or obese HEENT Reports moist mucous membranes normocephalic and atraumatic; Negative for trauma Eyes PERRL and EOMs intact bilaterally Neck full ROM and supple General: Negative for tenderness Chest Wall inspection of chest normal and palpation of chest normal Resp normal respiratory effort and clear to auscultation bilaterally Effort and Inspection: Negative for pain with movement Auscultation: Negative for rales, rhonchi or wheezes Cardio regular rate, regular rhythm, S1 normal heart sound, S2 normal heart sound and no murmurs GI non-tender, non-distended and no masses Auscultation: normoactive bowel sounds Palpation: soft; Negative for tender or guarding Back/Spine no CVA tenderness General Back: Negative for CVA tenderness Cervical Spine: Negative for cervical spine tenderness Thoracic Spine / Upper Back: Negative for thoracic spinal tenderness Lumbar Spine / Lower Back: Negative for lumbar spinal tenderness Extremity normal to inspection and full ROM Extremity Narrative: Skin tear left lateral posterior elbow. Normal range of motion. No bony deformity. General Extremety ED: Negative for edema General Extremity: Negative for edema Neuro oriented x3 and moves all extremities Sensorium / Orientation: alert, oriented to person, oriented to place and oriented to time Motor Exam: strength 5/5 throughout Psych mental status grossly normal Appearance: Negative for unkempt Mood & Affect: Negative for depressed or tearful Skin Skin Narrative: Skin tear left elbow. Lesions: no lesions Rashes: no rashes Trauma: laceration; Negative for no lacerations or abrasions or abrasion MDM MDM MDM Narrative Medical decision making narrative: Patient has a skin tear of his left elbow. Nurses will clean and dress it. His tetanus is up-to-date. Nothing to repair. Discharge Plan Triage Chief Complaint: Laceration Other Complaint: Suture Remv ED Provider: Tres Rosado Dx/Rx/DC Orders Clinical Impression: Skin tear, History of diabetes mellitus Prescriptions: No Action clopidogrel 75 MG tablet 75 mg PO DAILY RF: 0 aspirin 81 MG tablet,chewable 81 mg PO DAILY@0800 RF: 0 ciprofloxacin HCl [Cipro] 500 mg tablet 500 mg PO BID 10 Days Qty: 20 RF: 0 Primary Care Provider: Klaus Fagan Chi Referrals: Klaus Fagan Chi, MD [Primary Care Provider] - As Needed Activity Restrictions/Additional Instructions: Skin tear left elbow. Keep the area clean. Apply antibiotic ointment. You will eventually heal. Disposition Disposition: Home, Self Care
[2022-01-13 23:08] VITALS: BP 154/76; PULSE 60; RESP 15; O2SAT 3
== END 2022-01-13 23:10 | disposition home or self-care (01) ==
LOC: ED 22:55
PROVIDERS: Emergency Provider Emergency Medicine; PCP Family Medicine Geriatric Medicine; Visit Provider Emergency Medicine
DX: S51.012A Laceration without foreign body of left elbow, initial encounter (principal); Z87.891 Personal history of nicotine dependence; X58.XXXA Exposure to other specified factors, initial encounter; Z95.5 Presence of coronary angioplasty implant and graft
CPT/HCPCS: 99282

== ENCOUNTER → 2022-01-15 | Outpatient (CLI) | payer MEDICARE, SELFPAY ==
[2022-01-15 17:34] LABS: M R Staph aureus DNA By PCR Negative (Negative); Probe Check PASS; Specimen Processing Control PASS; Staph aureus DNA By PCR NEGATIVE (Negative)
== END | disposition home or self-care (01) ==
LOC: POLAB3 15:26 → LABSPEC 15:28
PROVIDERS: PCP Family Medicine Geriatric Medicine; Visit Provider Family Medicine Geriatric Medicine
DX: S41.109A Unspecified open wound of unspecified upper arm, initial encounter (principal); B95.62 Methicillin resistant Staphylococcus aureus infection as the cause of diseases classified elsewhere
CPT/HCPCS: 87070; 87205; 87640

== ENCOUNTER → 2022-02-19 | Outpatient (CLI) | payer MEDICARE, SELFPAY ==
[2022-02-19 11:04] LABS: Bacteria 0 SEEN /hpf (None Seen); Mucous, Urine 0 SEEN /hpf (<or=2+); Red Blood Cells-Urine 0 SEEN /hpf (0-5); Squamous Epithelial Cells - UA 0 SEEN /hpf (0-5); White Blood Cells 0 SEEN /hpf (0-5)
[2022-02-19 12:33] LABS: Color, Urine Yellow (Yellow); Glucose, Dipstick 250 mg/dl (Normal); Ketone-Dipstick Negative (Negative); Leukocyte Esterase-Dipstick 25 /ul (Negative); Nitrite-Dipstick Negative (Negative); Occult Blood-Urine Negative /ul (Negative); Protein-Dipstick 15 mg/dl (Negative); Urine Bilirubin Dipstick Negative (Negative); Urine Clarity Clear (Clear); Urine Urobilinogen Normal (Normal)
[2022-02-19 12:47] LABS: Albumin, Serum 3.3 g/dL (3.2-5.0); BUN 24 mg/dL (7-18); BUN/Creat Ratio 16.1 RATIO (10-20); Chloride 107 mmol/L (98-107); Creatinine, Serum 1.49 mg/dL (0.70-1.30); EST Glomerular Filtration Rate 47 mL/min (>60); Est Glom Filt Rate - Afr Amer 57 mL/min (>60); Glucose 153 mg/dL (74-106); Phosphorus 3.2 mg/dL (2.5-4.9); Potassium 4.5 mmol/L (3.5-5.1); Sodium Level 139 mmol/L (136-145)
[2022-02-19 12:57] LABS: Protein:Creat Ratio 147 mg/g CRE (0-200)
== END | disposition home or self-care (01) ==
LOC: POLAB3 11:02
PROVIDERS: PCP Family Medicine Geriatric Medicine; Visit Provider Internal Medicine Nephrology
DX: N18.32 Chronic kidney disease, stage 3b (principal)
CPT/HCPCS: 36415; 80069; 81001; 82570; 84156

== ENCOUNTER → 2022-05-06 | Outpatient (CLI) | payer MEDICARE, SELFPAY ==
[2022-05-06 12:20] LABS: Absolute Lymphocyte Count 2.35 X10^3/uL (0.83-4.51); Basophil# 0.07 X10^3/uL; Basophil% 0.8 % (0-1); Eosinophil# 0.35 X10^3/uL; Eosinophils% 4.2 % (0-5); Hematocrit 40.2 % (40-54); Lymphocyte # 2.35 X10^3/ul (0.83-4.51); Lymphocyte % 28.2 % (19-41); Mean Corp Hgb Conc 32.3 g/dL (32-36); Mean Platelet Vol. 10.6 fl (6.2-12.0); Monocyte# 0.53 X10^3/uL; Monocyte% 6.4 % (0-10); NRBC Flagged by Analyzer 0 % (0-5); Neutrophil # 4.98 X10^3/uL (2.7-7.7); Neutrophil % 59.7 % (47-70); Platelet Count 185 K/mm3 (150-450); RBC Distribution Width CV 13.5 % (11.6-14.6); RBC Distribution Width SD 49.1 fl (35.1-43.9); Red Blood Count 4.06 M/mm3 (4.6-6.2); White Blood Count 8.3 K/mm3 (4.4-11.0)
[2022-05-06 12:40] LABS: Vitamin D,25 Hydroxy 65.5 ng/mL
[2022-05-06 12:46] LABS: ALB/GLOB Ratio 0.9 RATIO (0.9-2.4); AST(SGOT) 10 U/L (15-37); Alanine Aminotransfer ALT/SGPT 17 U/L (16-61); Albumin, Serum 3.1 g/dL (3.2-5.0); Alkaline Phosphatase 65 U/L (45-117); Anion Gap 4 (5-15); BUN 25 mg/dL (7-18); BUN/Creat Ratio 17.1 RATIO (10-20); Calcium,Total 8.8 mg/dL (8.5-10.1); Chloride 108 mmol/L (98-107); Creatinine, Serum 1.46 mg/dL (0.70-1.30); EST Glomerular Filtration Rate 49 mL/min (>60); Est Glom Filt Rate - Afr Amer 59 mL/min (>60); Globulin 3.3 g/dL (2.2-4.2); Glucose 202 mg/dL (74-106); Potassium 4.5 mmol/L (3.5-5.1); Protein, Total 6.4 g/dL (6.4-8.2); Sodium Level 141 mmol/L (136-145); Thyroid Stim Hormone (TSH) 1.91 uIU/mL (0.358-3.74)
== END | disposition home or self-care (01) ==
LOC: POLAB3 09:08
PROVIDERS: PCP Family Medicine Geriatric Medicine; Visit Provider Family Medicine Geriatric Medicine
DX: E11.65 Type 2 diabetes mellitus with hyperglycemia (principal); E55.9 Vitamin D deficiency, unspecified; I10 Essential (primary) hypertension
CPT/HCPCS: 36415; 80053; 82306; 84443; 85025

== ENCOUNTER 2022-05-11 18:31 | Emergency (ER) | payer MEDICARE, SELFPAY ==
[2022-05-11 18:33] VITALS: BP 166/76; PULSE 95; RESP 18; TEMP 38.2; O2SAT 94; BMI 34.2
--- NOTE | 2022-05-11 19:44 | EDS_ITS ---
HPI History of Present Illness Chief Complaint: Confusion Narrative Narrative: 87-year-old male with history of dementia and confusion presenting with acting abnormally. Patient's states that at baseline he is confused and he babbles. Tonight at dinner he seemed to have worsening of this. This started about 530. She states it is describing as food and changing subjects frequently. She states that he felt a little bit nauseous after eating some dried beef and green beans. She states he got up and he was a little bit wobbly but this is not a new issue. She states he does not need physical therapy well and for this reason is wobbly. There is no new aspect to him being off balance. He is not fallen or had any head injury. No facial droop, slurred speech, paresthesias. Patient has no complaints at this time. [facility] Medical History Benign prostatic hyperplasia Diabetes Lab test negative for COVID-19 virus Myocardial infarct Home Medications aspirin 81 mg chewable tablet 81 mg PO DAILY@0800 11/30/20 [History Last Taken Unknown] clopidogrel 75 mg tablet 75 mg PO DAILY 11/30/20 [History Last Taken Unknown] ciprofloxacin HCl 500 mg tablet (Cipro) 500 mg PO BID 10 days #20 tabs 08/30/21 [Rx Last Taken Unknown] Allergy/AdvReac Type Severity Reaction Status Date / Time simvastatin Allergy PT UNSURE Verified 05/11/22 18:38 OF REACTION Surgical History History of coronary artery stent placement Social History Smoking Status: Former smoker ROS ROS ED Constitutional Constitutional ED: Denies chills or fever(s) Eyes Eyes: Denies change in vision ENT ENT ED: Denies rhinorrhea or sore throat Cardiovascular Cardiovascular: Denies chest pain Respiratory/Chest Respiratory/Chest: Denies cough Gastrointestinal Gastrointestinal: Reports nausea; Denies vomiting Genitourinary Genitourinary ED: Denies dysuria or hematuria Musculoskeletal Musculoskeletal: Denies arthralgias or back pain Integumentary Denies abscess or Abrasions Neurologic Neurologic: Denies headache(s) or paresthesias Psychiatric Psychiatric: Denies anxiety or depression EXAM Physical Exam Const Vital Signs: 10/03/22 18:33 Temperature 100.7 F H Temperature Source Temporal Pulse Rate 95 Respiratory Rate 18 Blood Pressure 166/76 H Blood Pressure Mean 106 Pulse Ox 94 Oxygen Delivery Method Room Air Positive well nourished General Appearance ED: NAD; Negative for pallor HEENT Reports moist mucous membranes Eyes PERRL and EOMs intact bilaterally Neck no lymphadenopathy Chest Wall inspection of chest normal and palpation of chest normal Resp clear to auscultation bilaterally Auscultation: Negative for rales, rhonchi or wheezes Cardio regular rate and regular rhythm GI normal to inspection, nondistended, normoactive bowel sounds Palpation: soft Back/Spine no CVA tenderness Neuro oriented x3, CN's II-XII intact bilaterally and no sensory deficits noted Sensorium / Orientation: alert Motor Exam: strength 5/5 throughout Psych mental status grossly normal Skin no rashes or lesions noted and no wounds General Skin Exam: Negative for jaundice or pallor MDM MDM MDM Narrative Medical decision making narrative: Patient with history of dementia presenting with worsening confusion. His states that he typically does babble a lot but he was babbling more rapidly this evening and changing subjects more frequently. He then complained of nausea and stopped eating his dry beef and toast and green beans. On arrival he has no complaints. There is no signs or symptoms consistent with stroke or TIA. He does have very bad dementia and unsteady balance and his symptoms started just after dinnertime. His balance issues are not new and his admits that she knows he has not doing PT like he should. He had no fall or injuries. She does state that has been coughing for about a month. She is not had this evaluated. He has not had a fever or chills. Lungs are clear to auscultation. I will check some basic lab work and a urinalysis as well as chest x-ray. Noted to have a low-grade temperature of 100.7. He was given Tylenol for this. CBC shows no leukocytosis and his white blood cell count is 7.5. Hemoglobin hematocrit are stable. Platelets are normal at 167. Creatinine slightly elevated 1.53 but this is patient's baseline. Patient was noted to be lymphopenic. Urinalysis negative for infection. Just over thousand glucose. Patient does have a glucose of 279 and his lab work however he does not have an anion gap. Patient's rapid COVID came back positive. Patient and family counseled on all findings. She is not hypoxic, tachypneic, tachycardic. I think you will do well as an outpatient. They are to alternate Tylenol and ibuprofen. Return precautions discussed. Impression: 1. Confusion 2. COVID-19 3. CKD 4. Generalized weakness 5. Nausea resolved Lab Data Attestation: I reviewed the patient's lab results. Labs: Laboratory Results - last 24 hr 05/11/22 05/11/22 05/11/22 18:50 18:50 18:50 WBC 7.5 RBC 4.26 L Hgb 13.4 Hct 42.3 MCV 99.3 H MCH 31.5 MCHC 31.7 L RDW Std Deviation 49.4 H RDW Coeff of Paulie 13.5 Plt Count 167 MPV 10.6 Immature Gran % (Auto) 0.700 Neut % (Auto) 79.6 H Lymph % (Auto) 10.5 L Kemper % (Auto) 7.0 Eos % (Auto) 1.7 Baso % (Auto) 0.5 Absolute Neuts (auto) 6.0 Absolute Lymphs (auto) 0.79 L Nucleated RBC % 0 Sodium 139 Potassium 4.1 Chloride 106 Carbon Dioxide 26.0 Anion Gap 7 BUN 20 H Creatinine 1.53 H Estim Creat Clear Calc 30.70 Est GFR (MDRD) Af Amer 56 L Est GFR (MDRD) Non-Af 46 L BUN/Creatinine Ratio 13.1 Glucose 279 H Calcium 8.9 Urine Color Straw Urine Clarity Clear Urine pH 6.0 Ur Specific Breeding 1.010 Urine Protein 15 H Urine Glucose (UA) 1000 H Urine Ketones 15 H Urine Occult Blood 25 H Urine Nitrite Negative Urine Bilirubin Negative Urine Urobilinogen Normal Ur Leukocyte Esterase Negative Urine RBC 0-5 SEEN Urine WBC 0 SEEN Ur Squamous Epith Cells 0 SEEN Urine Bacteria 0 SEEN Urine Mucus 0 SEEN Radiography Diagnostic Testing: Clinical Impression(s) from Imaging Studies Chest X-Ray 05/11/22 20:10 IMPRESSION: Degenerative changes, as described above. No demonstrated acute cardiopulmonary process. No major interval change Electronically Signed: Luke Laguna DO at 20:55 EDT Reading Location ID and State: [facility] / [place] Tel [phone], Service support , Discharge Plan Triage Chief Complaint: Confusion ED Provider: Palomo Newton Dx/Rx/DC Orders Prescriptions: No Action clopidogrel 75 MG tablet 75 mg PO DAILY aspirin 81 MG tablet,chewable 81 mg PO DAILY@0800 ciprofloxacin HCl [Cipro] 500 mg tablet 500 mg PO BID 10 Days Qty: 20 0RF Primary Care Provider: Klaus Fagan Chi Referrals: Klaus Fagan Chi, MD [Primary Care Provider] -
--- NOTE | 2022-05-11 20:10 | RAD_ITS ---
STUDY: X-RAY CHEST REASON FOR EXAM: Male, 87 years old. Confusion beginning 3 hours ago. History of dementia. TECHNIQUE: Single AP portable view of the chest. COMPARISON: 12/15/2021. FINDINGS: The lungs are clear and expanded. There is no demonstrated pleural abnormality. Normal size heart. Normal mediastinum and ramy. Normal visualized pulmonary arteries. Normal visualized aortic arch and descending thoracic aorta. Normal visualized thoracic spine. There is degenerative osteoarthritis of the bilateral shoulders. There is no demonstrated abnormality of the visualized soft tissue structures of the upper abdomen. RAD/Chest 1 View (Portable) IMPRESSION: Degenerative changes, as described above. No demonstrated acute cardiopulmonary process. No major interval change Electronically Signed: Luke Laguna DO at 20:55 EDT ,
[2022-05-11 20:13] LABS: Bacteria 0 SEEN /hpf (None Seen); Mucous, Urine 0 SEEN /hpf (<or=2+); Squamous Epithelial Cells - UA 0 SEEN /hpf (0-5); White Blood Cells 0 SEEN /hpf (0-5)
[2022-05-11 20:14] LABS: Absolute Lymphocyte Count 0.79 X10^3/uL (0.83-4.51); Basophil# 0.04 X10^3/uL; Basophil% 0.5 % (0-1); Color, Urine Straw (Yellow); Eosinophil# 0.13 X10^3/uL; Eosinophils% 1.7 % (0-5); Glucose, Dipstick 1000 mg/dl (Normal); Hematocrit 42.3 % (40-54); Hemoglobin 13.4 g/dL (13.0-16.5); Ketone-Dipstick 15 mg/dl (Negative); Leukocyte Esterase-Dipstick Negative /ul (Negative); Lymphocyte # 0.79 X10^3/ul (0.83-4.51); Lymphocyte % 10.5 % (19-41); Mean Corp Hgb Conc 31.7 g/dL (32-36); Mean Corpuscular Hgb 31.5 pg (27.0-32.0); Mean Corpuscular Volume 99.3 fL (80-94); Mean Platelet Vol. 10.6 fl (6.2-12.0); Monocyte# 0.53 X10^3/uL; NRBC Flagged by Analyzer 0 % (0-5); Neutrophil # 5.98 X10^3/uL (2.7-7.7); Neutrophil % 79.6 % (47-70); Nitrite-Dipstick Negative (Negative); Occult Blood-Urine 25 /ul (Negative); Platelet Count 167 K/mm3 (150-450); Protein-Dipstick 15 mg/dl (Negative); RBC Distribution Width CV 13.5 % (11.6-14.6); RBC Distribution Width SD 49.4 fl (35.1-43.9); Red Blood Count 4.26 M/mm3 (4.6-6.2); Urine Bilirubin Dipstick Negative (Negative); Urine Clarity Clear (Clear); Urine Urobilinogen Normal (Normal); White Blood Count 7.5 K/mm3 (4.4-11.0)
[2022-05-11 20:24] LABS: Red Blood Cells-Urine 0-5 SEEN /hpf (0-5)
[2022-05-11 20:27] LABS: Anion Gap 7 (5-15); BUN 20 mg/dL (7-18); BUN/Creat Ratio 13.1 RATIO (10-20); Calcium,Total 8.9 mg/dL (8.5-10.1); Chloride 106 mmol/L (98-107); Creatinine, Serum 1.53 mg/dL (0.70-1.30); EST Glomerular Filtration Rate 46 mL/min (>60); Est Glom Filt Rate - Afr Amer 56 mL/min (>60); Glucose 279 mg/dL (74-106); Potassium 4.1 mmol/L (3.5-5.1); Sodium Level 139 mmol/L (136-145)
[2022-05-11] MEDS: Acetaminophen 500 MG Tablet 1000 MG PO (21:14)
== END 2022-05-11 21:24 | disposition home or self-care (01) ==
PROVIDERS: Emergency Provider Student in an Organized Health Care Education/Training Program; PCP Family Medicine Geriatric Medicine; Visit Provider Student in an Organized Health Care Education/Training Program
DX: U07.1 COVID-19 (principal); R41.0 Disorientation, unspecified; N18.9 Chronic kidney disease, unspecified; R53.1 Weakness; Z87.891 Personal history of nicotine dependence
CPT/HCPCS: 71045; 80048; 81001; 85025; 87811; 99282; A4216

== ENCOUNTER → 2022-06-10 | Outpatient (CLI) | payer MEDICARE, SELFPAY ==
[2022-06-10 12:13] LABS: Albumin, Serum 3.1 g/dL (3.2-5.0); BUN 23 mg/dL (7-18); BUN/Creat Ratio 16.8 RATIO (10-20); Calcium,Total 8.9 mg/dL (8.5-10.1); Chloride 111 mmol/L (98-107); Creatinine, Serum 1.37 mg/dL (0.70-1.30); EST Glomerular Filtration Rate 52 mL/min (>60); Est Glom Filt Rate - Afr Amer 63 mL/min (>60); Glucose 227 mg/dL (74-106); Phosphorus 3.5 mg/dL (2.5-4.9); Potassium 4.4 mmol/L (3.5-5.1); Sodium Level 142 mmol/L (136-145)
[2022-06-10 12:17] LABS: PTHIN 43.9 pg/mL (18.4-80.1)
== END | disposition home or self-care (01) ==
LOC: POLAB3 10:12
PROVIDERS: PCP Family Medicine Geriatric Medicine; Visit Provider Internal Medicine Nephrology
DX: N18.32 Chronic kidney disease, stage 3b (principal)
CPT/HCPCS: 36415; 80069; 83970

== ENCOUNTER → 2022-07-15 | Outpatient (CLI) | payer MEDICARE, SELFPAY ==
[2022-07-15 12:35] LABS: Absolute Lymphocyte Count 2.12 X10^3/uL (0.83-4.51); Absolute Neutrophil Count 4.6 X10^3/uL (2.0-7.7); Basophil# 0.08 X10^3/uL; Eosinophil# 0.33 X10^3/uL; Eosinophils% 4.3 % (0-5); Hemoglobin 14.3 g/dL (13.0-16.5); Lymphocyte # 2.12 X10^3/ul (0.83-4.51); Lymphocyte % 27.8 % (19-41); Mean Corp Hgb Conc 32.5 g/dL (32-36); Mean Corpuscular Hgb 32.4 pg (27.0-32.0); Mean Corpuscular Volume 99.5 fL (80-94); Mean Platelet Vol. 10.8 fl (6.2-12.0); Monocyte# 0.49 X10^3/uL; Monocyte% 6.4 % (0-10); NRBC Flagged by Analyzer 0 % (0-5); Neutrophil # 4.56 X10^3/uL (2.7-7.7); Platelet Count 219 K/mm3 (150-450); RBC Distribution Width CV 14.2 % (11.6-14.6); RBC Distribution Width SD 52.1 fl (35.1-43.9); Red Blood Count 4.42 M/mm3 (4.6-6.2); White Blood Count 7.6 K/mm3 (4.4-11.0)
[2022-07-15 13:23] LABS: AST(SGOT) 10 U/L (15-37); Alanine Aminotransfer ALT/SGPT 16 U/L (16-61); Albumin, Serum 3.1 g/dL (3.2-5.0); Alkaline Phosphatase 68 U/L (45-117); Anion Gap 6 (5-15); BUN 25 mg/dL (7-18); BUN/Creat Ratio 14.7 RATIO (10-20); Chloride 108 mmol/L (98-107); EST Glomerular Filtration Rate 41 mL/min (>60); Est Glom Filt Rate - Afr Amer 49 mL/min (>60); Globulin 3.2 g/dL (2.2-4.2); Glucose 167 mg/dL (74-106); Protein, Total 6.3 g/dL (6.4-8.2); Sodium Level 142 mmol/L (136-145); Thyroid Stim Hormone (TSH) 1.93 uIU/mL (0.358-3.74)
== END | disposition home or self-care (01) ==
LOC: POLAB3 10:20
PROVIDERS: PCP Family Medicine Geriatric Medicine; Visit Provider Family Medicine Geriatric Medicine
DX: I10 Essential (primary) hypertension (principal); E11.65 Type 2 diabetes mellitus with hyperglycemia; E55.9 Vitamin D deficiency, unspecified
CPT/HCPCS: 36415; 80053; 82306; 84443; 85025

== ENCOUNTER 2022-08-12 06:06 | Emergency (ER) | payer MEDICARE, SELFPAY ==
[2022-08-12 06:07] VITALS: BP 162/72; PULSE 60; RESP 19; TEMP 36.6; O2SAT 97; BMI 32.6
--- NOTE | 2022-08-12 06:28 | EDS_ITS ---
HPI HPI - Fall History of Present Illness Chief Complaint: Fall Informant: patient Occured/Mechanism Occurred: Today Mechanism/Context: Yes same level fall and Yes slip Pain/Injury Pain Location: head Quality of Pain: Sharp, Aching and Burning Worsened by: Nothing Relieved by: Nothing Associated Symptoms Associated Symptoms: Negative for Parasthesias, Weakness, Loss of function, Inability to ambulate, Loss of consciousness or Amnesia Narrative Narrative: Patient presents after a fall that occurred today. Patient states he slipped in the shower and hit his head on the shower door. Patient denies any loss of consciousness. Patient takes aspirin but denies taking any blood thinners. Patient has a laceration to the top of her scalp. Patient states the bleeding stopped after a few minutes. Patient denies any paresthesias or weakness. Patient denies any loss of consciousness. Patient is unsure of his last tetanus. Patient describes the pain as dull and aching. PFSH PFS Medical History Benign prostatic hyperplasia Dementia Diabetes Lab test negative for COVID-19 virus Myocardial infarct Home Medications aspirin 81 mg chewable tablet 81 mg PO DAILY@0800 11/30/20 [History Last Taken Unknown] clopidogrel 75 mg tablet 75 mg PO DAILY 11/30/20 [History Last Taken Unknown] ciprofloxacin HCl 500 mg tablet (Cipro) 500 mg PO BID 10 days #20 tabs 08/30/21 [Rx Last Taken Unknown] ondansetron 4 mg disintegrating tablet 4 mg PO Q8H PRN nausea and vomiting #10 tabs 05/11/22 [Rx Last Taken Unknown] Allergy/AdvReac Type Severity Reaction Status Date / Time simvastatin Allergy PT UNSURE Verified 05/11/22 18:38 OF REACTION Surgical History History of coronary artery stent placement Social History Smoking Status: Former smoker ROS ROS ED Constitutional Constitutional ED: Denies chills or fever(s) Eyes Eyes: Denies blurry vision or change in vision ENT ENT ED: Denies rhinorrhea or sore throat Cardiovascular Cardiovascular: Denies chest pain or palpitations Respiratory/Chest Respiratory/Chest: Denies cough or dyspnea Gastrointestinal Gastrointestinal: Denies nausea or vomiting Genitourinary Genitourinary ED: Denies dysuria or hematuria Musculoskeletal Musculoskeletal: Denies back pain or neck pain Integumentary Denies abscess or rash Neurologic Neurologic: Denies headache(s) or weakness Allergic/Immunologic Allergic/Immunologic ED: Denies mouth swelling or urticaria EXAM Physical Exam Const Vital Signs: 08/12/22 06:07 08/12/22 06:07 Temperature 97.9 F Temperature Source Oral Pulse Rate 60 Respiratory Rate 19 H Blood Pressure 162/72 H Blood Pressure Mean 102 Pulse Ox 97 Oxygen Delivery Method Room Air Room Air Positive well nourished and well developed General Appearance ED: well developed and NAD HEENT HEENT Narrative: There is a 2.5 cm linear laceration of the top of the scalp. There is minimal gapping of the wound margins. There is no active bleeding noted. There is no foreign body noted. There is no bony crepitance or step-off. Eyes PERRL and EOMs intact bilaterally Neck full ROM and supple Neuro oriented x3, CN's II-XII intact bilaterally, moves all extremities, no focal motor deficits and no sensory deficits noted Simón Coma Scale: document GCS findings Spontaneous Obeys Commands Oriented 15 Sensorium / Orientation: alert Motor Exam: strength 5/5 throughout MDM MDM MDM Narrative Medical decision making narrative: Patient was given a tetanus booster here. The wound was cleaned and irrigated with copious months normal saline. The wound was anesthetized 2% lidocaine with epinephrine. The wound was closed with 4 simple vince. Patient tolerated the procedure well. Bacitracin dressing was applied. Patient was instructed to keep the wound clean and dry. Patient was instructed to follow-up with his primary care physician in 5 to 7 days. Patient understood and was agreeable with the plan. All questions were answered. Procedures Lacerations Scalp: Length: 2.5 cm Depth: Skin Shape: Linear Prep: Sterile Conditions and Chlorhexadine Laceration repair: Irrigated, Lidocaine with epi, Local and Wound explored Number of Sutures/Vince: 4 Discharge Plan Triage Chief Complaint: Fall ED Provider: Brian Claudio Dx/Rx/DC Orders Clinical Impression: Laceration of scalp, Closed head injury, Fall Instructions: ED Head Injury (Adult), ED Laceration Scalp Stitches or [place] Prescriptions: No Action clopidogrel 75 MG tablet 75 mg PO DAILY aspirin 81 MG tablet,chewable 81 mg PO DAILY@0800 ciprofloxacin HCl [Cipro] 500 mg tablet 500 mg PO BID 10 Days Qty: 20 0RF ondansetron 4 mg tablet,disintegrating 4 mg PO Q8H PRN (Reason: nausea and vomiting) Qty: 10 0RF Primary Care Provider: Klaus Fagan Chi Referrals: Klaus Fagan Chi, MD [Primary Care Provider] - 5 Days for suture removal Disposition Disposition: Home, Self Care
[2022-08-12] MEDS: Diphth,Pertuss(Acell),Tet Vac 0.5 ML Vial IM (06:59)
[2022-08-12] MEDS: Lidocaine 2% /Epi 1:100 (50ml) 50 ML Vial INFILT (07:03)
== END 2022-08-12 07:05 | disposition home or self-care (01) ==
LOC: ED 06:41
PROVIDERS: Emergency Provider Emergency Medicine; PCP Family Medicine Geriatric Medicine; Visit Provider Emergency Medicine
DX: S01.01XA Laceration without foreign body of scalp, initial encounter (principal); E11.9 Type 2 diabetes mellitus without complications; Z87.891 Personal history of nicotine dependence; W01.0XXA Fall on same level from slipping, tripping and stumbling without subsequent striking against object, initial encounter; Z23 Encounter for immunization
CPT/HCPCS: 12001; 90715; 96372; 99283

== ENCOUNTER → 2022-10-14 | Outpatient (CLI) | payer MEDICARE, SELFPAY ==
[2022-10-14 13:08] LABS: Absolute Lymphocyte Count 1.88 X10^3/uL (0.83-4.51); Absolute Neutrophil Count 5.4 X10^3/uL (2.0-7.7); Basophil# 0.07 X10^3/uL; Basophil% 0.9 % (0-1); Eosinophil# 0.33 X10^3/uL; Eosinophils% 4.1 % (0-5); Hematocrit 46.3 % (40-54); Hemoglobin 14.8 g/dL (13.0-16.5); Lymphocyte # 1.88 X10^3/ul (0.83-4.51); Lymphocyte % 23.1 % (19-41); Mean Corpuscular Hgb 31.2 pg (27.0-32.0); Mean Corpuscular Volume 97.7 fL (80-94); Mean Platelet Vol. 10.1 fl (6.2-12.0); Monocyte# 0.47 X10^3/uL; Monocyte% 5.8 % (0-10); NRBC Flagged by Analyzer 0 % (0-5); Neutrophil # 5.35 X10^3/uL (2.7-7.7); Neutrophil % 65.6 % (47-70); Platelet Count 240 K/mm3 (150-450); RBC Distribution Width CV 13.9 % (11.6-14.6); RBC Distribution Width SD 50.1 fl (35.1-43.9); Red Blood Count 4.74 M/mm3 (4.6-6.2); White Blood Count 8.1 K/mm3 (4.4-11.0)
[2022-10-14 13:22] LABS: Vitamin D,25 Hydroxy 55.5 ng/mL
[2022-10-14 13:36] LABS: AST(SGOT) 10 U/L (15-37); Alanine Aminotransfer ALT/SGPT 18 U/L (16-61); Alkaline Phosphatase 64 U/L (45-117); Anion Gap 6 (5-15); BUN 25 mg/dL (7-18); BUN/Creat Ratio 18.5 RATIO (10-20); Calcium,Total 9.1 mg/dL (8.5-10.1); Chloride 110 mmol/L (98-107); Creatinine, Serum 1.35 mg/dL (0.70-1.30); EST Glomerular Filtration Rate 53 mL/min (>60); Est Glom Filt Rate - Afr Amer 64 mL/min (>60); Globulin 3.1 g/dL (2.2-4.2); Glucose 167 mg/dL (74-106); Potassium 4.5 mmol/L (3.5-5.1); Protein, Total 6.1 g/dL (6.4-8.2); Sodium Level 142 mmol/L (136-145); Thyroid Stim Hormone (TSH) 1.51 uIU/mL (0.358-3.74)
== END | disposition home or self-care (01) ==
LOC: POLAB3 10:29
PROVIDERS: PCP Family Medicine Geriatric Medicine; Visit Provider Family Medicine Geriatric Medicine
DX: E55.9 Vitamin D deficiency, unspecified (principal); E11.65 Type 2 diabetes mellitus with hyperglycemia; I10 Essential (primary) hypertension
CPT/HCPCS: 36415; 80053; 82306; 84443; 85025

== ENCOUNTER → 2022-11-17 | Outpatient (CLI) | payer MEDICARE, SELFPAY | END | disposition home or self-care (01) | PROVIDERS: PCP Family Medicine Geriatric Medicine; Referring Provider Family Medicine Geriatric Medicine; Visit Provider Family Medicine Geriatric Medicine | DX: R68.83 Chills (without fever) (principal) | CPT/HCPCS: 87635; 87804; 87807; U0003; U0005 ==

== ENCOUNTER → 2023-02-10 | Outpatient (CLI) | payer MEDICARE, SELFPAY ==
[2023-02-10 12:38] LABS: Albumin, Serum 3.1 g/dL (3.2-5.0); BUN 20 mg/dL (7-18); BUN/Creat Ratio 11.2 RATIO (10-20); Calcium,Total 8.6 mg/dL (8.5-10.1); Chloride 108 mmol/L (98-107); Creatinine, Serum 1.78 mg/dL (0.70-1.30); EST Glomerular Filtration Rate 39 mL/min (>60); Est Glom Filt Rate - Afr Amer 47 mL/min (>60); Glucose 207 mg/dL (74-106); Phosphorus 3.1 mg/dL (2.5-4.9); Potassium 4.1 mmol/L (3.5-5.1); Sodium Level 139 mmol/L (136-145)
== END | disposition home or self-care (01) ==
PROVIDERS: PCP Family Medicine Geriatric Medicine; Visit Provider Internal Medicine Nephrology
DX: E11.22 Type 2 diabetes mellitus with diabetic chronic kidney disease (principal); E11.21 Type 2 diabetes mellitus with diabetic nephropathy; N18.32 Chronic kidney disease, stage 3b
CPT/HCPCS: 36415; 80069

== ENCOUNTER → 2023-02-17 | Outpatient (CLI) | payer MEDICARE, SELFPAY ==
[2023-02-17 16:35] LABS: Protein, Urine (Random) 14.4 mg/dL (<11.9); Protein:Creat Ratio 123 mg/g CRE (0-200)
== END | disposition home or self-care (01) ==
LOC: POLAB3 12:17
PROVIDERS: PCP Family Medicine Geriatric Medicine; Visit Provider Family Medicine Geriatric Medicine
DX: E11.21 Type 2 diabetes mellitus with diabetic nephropathy (principal)
CPT/HCPCS: 82570; 84156

== ENCOUNTER 2023-03-08 14:18 | Emergency (ER) | payer MEDICARE, SELFPAY ==
[2023-03-08] VITALS (7 sets, daily range): BP systolic 133–144; BP diastolic 71–77; PULSE 57–65; RESP 16–18; TEMP 37.1; O2SAT 95–98; BMI 31.0
--- NOTE | 2023-03-08 15:00 | CT_ITS ---
STUDY: CT BRAIN WITHOUT CONTRAST REASON FOR EXAM: Male, 87 years old. Change in Mental Status RADIATION DOSAGE (If Supplied By Facility): CTDIvol = ( 44.99 ) mGy, DLP = ( 812.98 ) mGycm TECHNIQUE: Transaxial CT imaging of the brain was performed without administration of intravenous contrast material. Individualized dose optimization techniques were used for this CT. COMPARISON: No relevant priors. FINDINGS: Normal soft tissue structures. Normal calvarium. Calcific plaquing of the cavernous carotids. The Moderate atrophy and periventricular white matter ischemic changes.. Normal basal ganglia and thalami. Normal brainstem. Normal cerebellum. There is no intracranial hemorrhage. There are no findings of an acute ischemic infarction. Postsurgical changes of the orbits Mucous retention cyst in bilateral maxillary sinuses. Minor mucosal thickening of right anterior and left posterior ethmoid air cells CT/Brain/Head without Contrast IMPRESSION: Atrophy and moderate periventricular white matter ischemic changes. No acute bleed. If clinical concern for acute infarct MRI recommended Electronically Signed: Antoine Bermoe MD at 16:17 EDT ,
--- NOTE | 2023-03-08 15:00 | EKG12_ITS ---
Test Reason : MEDICAL CLEARANCE Blood Pressure : / mmHG Vent. Rate : 056 BPM Atrial Rate : 056 BPM P-R Int : 192 ms QRS Dur : 106 ms QT Int : 426 ms P-R-T Axes : 017 018 -24 degrees QTc Int : 411 ms Sinus bradycardia Otherwise normal ECG Confirmed by SUSANNA GUNN, DIOGENES ([id number]), editor map KADEEM SINGER ([id number]) on 03/09/2023 11:01:29 AM Referred By: Confirmed By:DIOGENES MULLINS MD
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
--- NOTE | 2023-03-08 15:48 | RAD_ITS ---
STUDY: X-RAY CHEST REASON FOR EXAM: Male, 87 years old. medical clearance TECHNIQUE: PA and lateral COMPARISON: May 11, 2022. FINDINGS: Minor chronic interstitial thickening in the right lower lobe. There is no demonstrated pleural abnormality. Normal size heart. Normal mediastinum and ramy. Normal visualized pulmonary arteries. Normal visualized aortic arch and descending thoracic aorta. Dorsal spine demonstrates mild spondylosis.. Normal visualized ribs, clavicles, and shoulders. Postsurgical changes in the right upper quadrant of the abdomen No significant change since previous study t RAD/Chest PA and Lateral IMPRESSION: No acute cardiopulmonary pathology. Electronically Signed: Antoine Bermeo MD at 16:48 EDT ,
[2023-03-08 16:04] LABS: Absolute Lymphocyte Count 2.15 X10^3/uL (0.83-4.51); Absolute Neutrophil Count 3.6 X10^3/uL (2.0-7.7); Basophil# 0.07 X10^3/uL; Eosinophil# 0.42 X10^3/uL; Eosinophils% 6.3 % (0-5); Hematocrit 42.7 % (40-54); Hemoglobin 13.7 g/dL (13.0-16.5); Lymphocyte # 2.15 X10^3/ul (0.83-4.51); Lymphocyte % 32.1 % (19-41); Mean Corp Hgb Conc 32.1 g/dL (32-36); Mean Corpuscular Hgb 31.3 pg (27.0-32.0); Mean Corpuscular Volume 97.5 fL (80-94); Monocyte# 0.44 X10^3/uL; Monocyte% 6.6 % (0-10); NRBC Flagged by Analyzer 0 % (0-5); Neutrophil # 3.59 X10^3/uL (2.7-7.7); Neutrophil % 53.7 % (47-70); Platelet Count 190 K/mm3 (150-450); RBC Distribution Width CV 13.8 % (11.6-14.6); RBC Distribution Width SD 49.7 fl (35.1-43.9); Red Blood Count 4.38 M/mm3 (4.6-6.2); White Blood Count 6.7 K/mm3 (4.4-11.0)
[2023-03-08 16:16] LABS: ALB/GLOB Ratio 1.1 RATIO (0.9-2.4); AST(SGOT) 10 U/L (15-37); Alanine Aminotransfer ALT/SGPT 11 U/L (16-61); Albumin, Serum 3.2 g/dL (3.2-5.0); Alkaline Phosphatase 58 U/L (45-117); Anion Gap 3 (5-15); BUN 21 mg/dL (7-18); BUN/Creat Ratio 12.5 RATIO (10-20); Calcium,Total 8.5 mg/dL (8.5-10.1); Chloride 109 mmol/L (98-107); Creatinine, Serum 1.68 mg/dL (0.70-1.30); EST Glomerular Filtration Rate 41 mL/min (>60); Est Glom Filt Rate - Afr Amer 50 mL/min (>60); Estimated Creatinine Clearance 28.96 ml/min; Globulin 2.8 g/dL (2.2-4.2); Glucose 134 mg/dL (74-106); Potassium 4.2 mmol/L (3.5-5.1); Sodium Level 140 mmol/L (136-145)
[2023-03-08 16:18] LABS: Alcohol, Blood (Medical)-Serum < 3.0 mg/dL
[2023-03-08 16:28] LABS: Bacteria 0 SEEN /hpf (None Seen); Mucous, Urine 0 SEEN /hpf (<or=2+); Squamous Epithelial Cells - UA 0 SEEN /hpf (0-5)
[2023-03-08 16:47] LABS: Color, Urine Yellow (Yellow); Glucose, Dipstick Normal (Normal); Ketone-Dipstick 5 mg/dl (Negative); Leukocyte Esterase-Dipstick 25 /ul (Negative); Nitrite-Dipstick Negative (Negative); Occult Blood-Urine Negative /ul (Negative); Protein-Dipstick 30 mg/dl (Negative); Specific Gravity, Urine 1.025 (1.002-1.030); Urine Bilirubin Dipstick Negative (Negative); Urine Clarity Clear (Clear); Urine Urobilinogen Normal (Normal)
[2023-03-08 16:55] LABS: Red Blood Cells-Urine 0-5 SEEN /hpf (0-5); White Blood Cells 0-5 SEEN /hpf (0-5)
[2023-03-08 17:02] LABS: Amphetamine Urine VISTA NEGATIVE (<1000 ng/mL); Barbiturate Urine VISTA NEGATIVE (< 200 ng/mL); Benzodiazepine Urine VISTA NEGATIVE (< 200 ng/mL); Cocaine Urine VISTA NEGATIVE (< 300 ng/mL); Ecstacy Urine VISTA NEGATIVE (< 500 ng/mL); Methadone Urine VISTA NEGATIVE (< 300 ng/mL); PCP Urine VISTA NEGATIVE (< 25 ng/mL); THC Urine VISTA NEGATIVE (< 50 ng/mL); Vista UDS pH Range 6
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
[2023-03-08 20:17] LABS: Bedside Glucose 179 mg/dL (74-106)
== END 2023-03-08 20:58 ==
PROVIDERS: Emergency Provider Emergency Medicine; PCP Family Medicine Geriatric Medicine; Visit Provider Emergency Medicine
DX: F03.918 Unspecified dementia, unspecified severity, with other behavioral disturbance (principal); E11.9 Type 2 diabetes mellitus without complications; Z79.4 Long term (current) use of insulin; I25.2 Old myocardial infarction; Z87.891 Personal history of nicotine dependence; Z79.82 Long term (current) use of aspirin; Z79.899 Other long term (current) drug therapy; Z79.84 Long term (current) use of oral hypoglycemic drugs
CPT/HCPCS: 70450; 71046; 80053; 80307; 81001; 82077; 82962; 84443; 85025; 87426; 93005; 99285

== ENCOUNTER → 2023-04-21 | Outpatient (CLI) | payer MEDICARE, SELFPAY ==
[2023-04-21 11:53] LABS: Absolute Lymphocyte Count 1.85 X10^3/uL (0.83-4.51); Absolute Neutrophil Count 4.5 X10^3/uL (2.0-7.7); Basophil# 0.06 X10^3/uL; Basophil% 0.8 % (0-1); Eosinophil# 0.46 X10^3/uL; Eosinophils% 6.2 % (0-5); Hematocrit 43.7 % (40-54); Hemoglobin 13.9 g/dL (13.0-16.5); Lymphocyte # 1.85 X10^3/ul (0.83-4.51); Mean Corp Hgb Conc 31.8 g/dL (32-36); Mean Corpuscular Hgb 31.2 pg (27.0-32.0); Mean Platelet Vol. 10.1 fl (6.2-12.0); Monocyte# 0.49 X10^3/uL; Monocyte% 6.6 % (0-10); NRBC Flagged by Analyzer 0 % (0-5); Neutrophil # 4.52 X10^3/uL (2.7-7.7); Platelet Count 206 K/mm3 (150-450); RBC Distribution Width CV 13.8 % (11.6-14.6); Red Blood Count 4.46 M/mm3 (4.6-6.2); White Blood Count 7.4 K/mm3 (4.4-11.0)
[2023-04-21 12:08] LABS: Vitamin D,25 Hydroxy 62.4 ng/mL
[2023-04-21 12:15] LABS: ALB/GLOB Ratio 1.1 RATIO (0.9-2.4); AST(SGOT) 7 U/L (15-37); Alanine Aminotransfer ALT/SGPT 12 U/L (16-61); Albumin, Serum 3.3 g/dL (3.2-5.0); Alkaline Phosphatase 65 U/L (45-117); Anion Gap 3 (5-15); BUN 19 mg/dL (7-18); BUN/Creat Ratio 12.3 RATIO (10-20); Calcium,Total 8.6 mg/dL (8.5-10.1); Chloride 111 mmol/L (98-107); Creatinine, Serum 1.55 mg/dL (0.70-1.30); EST Glomerular Filtration Rate 45 mL/min (>60); Est Glom Filt Rate - Afr Amer 55 mL/min (>60); Globulin 3.1 g/dL (2.2-4.2); Glucose 154 mg/dL (74-106); Potassium 4.2 mmol/L (3.5-5.1); Protein, Total 6.4 g/dL (6.4-8.2); Sodium Level 142 mmol/L (136-145); Thyroid Stim Hormone (TSH) 3.87 uIU/mL (0.358-3.74)
== END | disposition home or self-care (01) ==
LOC: POLAB3 11:00
PROVIDERS: PCP Family Medicine Geriatric Medicine; Visit Provider Family Medicine Geriatric Medicine
DX: N39.0 Urinary tract infection, site not specified (principal); E11.65 Type 2 diabetes mellitus with hyperglycemia; E55.9 Vitamin D deficiency, unspecified
CPT/HCPCS: 36415; 80053; 82306; 84443; 85025; 87086

== ENCOUNTER → 2023-06-08 | Outpatient (CLI) | payer MEDICARE, SELFPAY ==
[2023-06-08 15:28] LABS: Thyroid Stim Hormone (TSH) 1.76 uIU/mL (0.358-3.74)
== END | disposition home or self-care (01) ==
LOC: POLAB3 14:36
PROVIDERS: PCP Family Medicine Geriatric Medicine; Visit Provider Family Medicine Geriatric Medicine
DX: E03.9 Hypothyroidism, unspecified (principal)
CPT/HCPCS: 36415; 84443

== ENCOUNTER → 2023-06-16 | Outpatient (CLI) | payer MEDICARE, SELFPAY | END | disposition home or self-care (01) | LOC: POLAB3 16:53 | PROVIDERS: PCP Family Medicine Geriatric Medicine; Visit Provider Family Medicine Geriatric Medicine | DX: N39.0 Urinary tract infection, site not specified (principal) | CPT/HCPCS: 87086; 87088 ==

== ENCOUNTER 2023-08-18 14:14 | Emergency (ER) | payer MEDICARE, SELFPAY ==
[2023-08-18 14:15] VITALS: BP 142/81; PULSE 82; RESP 15; TEMP 38.2; O2SAT 92; BMI 27.9
[2023-08-18 14:30] VITALS: BP 123/68; PULSE 78; RESP 25; TEMP 38.2
--- NOTE | 2023-08-18 14:34 | EDS_ITS ---
HPI History of Present Illness Chief Complaint: Confusion [facility] Medical History Benign prostatic hyperplasia Dementia Diabetes Lab test negative for COVID-19 virus Myocardial infarct Home Medications aspirin 81 mg chewable tablet 81 mg PO DAILY HEART HEALTH 11/30/20 [History Last Taken Unknown] ondansetron 4 mg disintegrating tablet 4 mg PO Q8H PRN nausea and vomiting #10 tabs 05/11/22 [Rx Last Taken Unknown] cholecalciferol (vitamin D3) 50 mcg (2,000 unit) capsule (Vitamin D3) 50 mcg PO DAILY SUPPLEMENT 03/08/23 [History Last Taken Unknown] cimetidine 400 mg tablet 400 mg PO BID ULCERS 03/08/23 [History Last Taken Unknown] cyanocobalamin (vitamin B-12) 1,000 mcg tablet (Vitamin B-12) 1,000 mcg PO DAILY SUPPLEMENT 03/08/23 [History Last Taken Unknown] donepezil 5 mg tablet 5 mg PO DAILY 03/08/23 [History Last Taken Unknown] fluoxetine 20 mg capsule 20 mg PO DAILY EDEMA 03/08/23 [History Last Taken Unknown] folic acid 400 mcg tablet 400 mcg PO DAILY SUPPLEMENT 03/08/23 [History Last Taken Unknown] hydroxyzine pamoate 25 mg capsule (Vistaril) 25 mg PO Q6H PRN AGITATION 03/08/23 [History Last Taken Unknown] insulin glargine 100 unit/mL subcutaneous solution (Lantus U-100 Insulin) 30 unit subcut QPM DIABETES 03/08/23 [History Last Taken Unknown] isosorbide mononitrate 10 mg tablet 10 mg PO DAILY CHEST PAIN 03/08/23 [History Last Taken Unknown] loratadine 10 mg tablet (Allerclear) 10 mg PO DAILY ALLERGIES 03/08/23 [History Last Taken Unknown] melatonin 3 mg capsule 3 mg PO QHS INSOMNIA 03/08/23 [History Last Taken Unknown] memantine 10 mg tablet 10 mg PO BID MEMORY 03/08/23 [History Last Taken Unknown] metformin 500 mg tablet 500 mg PO BID BLOOD SUGARS 03/08/23 [History Last Taken Unknown] metoprolol succinate 100 mg tablet,extended release 24 hr 100 mg PO DAILY BLOOD PRESSURE 03/08/23 [History Last Taken Unknown] trazodone 100 mg tablet 100 mg PO QHS SLEEP 03/08/23 [History Last Taken Unknown] citalopram 10 mg tablet mg 08/18/23 [History Last Taken Unknown] levothyroxine 137 mcg tablet 137 mcg PO DAILY THYROID 08/18/23 [History Last Taken Unknown] lisinopril 10 mg tablet 10 mg PO DAILY BLOOD PRESSURE 08/18/23 [History Last Taken Unknown] medroxyprogesterone 10 mg tablet 10 mg PO DAILY HORMONES 08/18/23 [History Last Taken Unknown] Allergy/AdvReac Type Severity Reaction Status Date / Time simvastatin Allergy PT UNSURE Verified 03/08/23 14:21 OF REACTION Surgical History History of coronary artery stent placement Social History Smoking Status: Former smoker EXAM Physical Exam Const Vital Signs: 08/18/23 14:15 08/18/23 14:30 08/18/23 14:59 Temperature 100.7 F H 100.7 F H Temperature Source Temporal Temporal Pulse Rate 82 78 Respiratory Rate 15 25 H Blood Pressure 142/81 H 123/68 H Blood Pressure Mean 101 86 Pulse Ox 92 Oxygen Delivery Method Room Air Room Air 08/18/23 17:11 08/18/23 18:46 Temperature 98.2 F 98.6 F Temperature Source Oral Oral Pulse Rate 71 75 Respiratory Rate 17 16 Blood Pressure 117/58 L 113/57 L Blood Pressure Mean 77 75 Pulse Ox 99 97 Oxygen Delivery Method Room Air Room Air [facility] [place] Narrative Medical decision making narrative: HISTORY OF PRESENT ILLNESS: 88-year-old male presents with confusion, change in mental status. Per EMS patient's baseline is alert and orient x 1 secondary to dementia but today he is not following simple commands. They also note he has cold-like symptoms. REVIEW OF SYSTEMS: Patient does not provide reliable review of systems given his change in mental status PHYSICAL EXAM: Nursing triage notes reviewed, Vital signs reviewed Constitutional: please see mdm HENT: MMM Eyes: Pupils equal round and reactive to light, Extraocular muscles intact Neck: No stridor, no JVD, full neck ROM Lungs: Clear to auscultation, No wheezing or rales. No increased work of breathing, no conversational dyspnea, no accessory muscle use, no nasal flaring. No respiratory distress noted Heart: Regular rate and rhythm, No murmurs, No rubs and No gallops, 2+ distal pulses (radial, femoral, posterior tibial) in all extremities Abdomen: Soft, there is no tenderness, rigidity, rebound or guarding, no obvious peritoneal signs, no palpable pulsatile abdominal masses, no auscultated abdominal bruit : No CVAT Extremities: No edema Neuro: N alert and oriented to person but not place or time cranial nerves II through XII intact, 5/5 strength in all extremities. Intact sensation to light touch in all extremities, 2+ reflexes bilateral patella tendons. No ataxia. Skin: No rash or lesions noted MEDICAL DECISION MAKING: Chief Complaint: Altered mental status, cold-like symptom External records reviewed: Last ED visit in February. Last ED visit his mental status was oriented to state but not to place otherwise Factors affecting care: Type 2 diabetes, hypothyroidism, hypertension, [facility] Social determinants of health: [place] resident History obtained from others: Patient's Consults: none [facility] Narrative: Patient was initially tachypneic, febrile saturating well on room air. Lungs were clear no focal consolidation. No focal neurologic deficits. I considered the following differential diagnosis: COVID, flu, pneumonia, ICH, infectious or metabolic encephalopathy ALL IMAGES (IF OBTAINED) HAVE BEEN PERSONALLY REVIEWED AND INTERPRETED BY MYSELF. CBC without leukocytosis, there is mild anemia, no thrombocytopenia BMP without significant electrolyte abnormalities, no anion gap, baseline CKD High-sensitivity troponin is negative, no evidence of myocardial ischemia EKG with normal sinus rhythm, normal axis, normal intervals, no STEMI CT scan head was negative COVID test is positive BNP is only slightly elevated consistent with elevated wall pressure The synthesis of the patient's history, physical exam, labs images Suggest COVID-19. The patient was not hypoxic. He did not require oxygen, Decadron, remdesivir. Did not prescribe Paxlovid given underlying CKD. He lives at a care home we can be monitored very closely. I discussed this with the stephany dinero and his . His was alert and orient x 3 and had capacity to make medical decision for the patient. She is okay with patient being discharged with the Paxlovid and will return if symptoms change or worsen the patient and/or family, caregivers express understanding. The patient and/or family, caregivers agrees with the plan. Shared decision making: I will have a discussion with the patient and or visitors regarding risk/benefits of further testing or admission. They will be made aware of of the risk/benefits inherent in this decision they will be given the opportunity to voice understanding. Total critical care time today provided was at least 0 minutes. This excludes separately billable procedures. Critical care time (if documented) is secondary to the patient having high probability of clinically significant/life threatening deterioration in the patient's condition which required my urgent intervention. Impression: 1. Altered mental status 2. COVID-19 Dispo: Discharge Lab Data Labs: Laboratory Results - last 24 hr 08/18/23 15:00 WBC 6.7 RBC 3.93 L Hgb 12.5 L Hct 37.6 L MCV 95.7 H MCH 31.8 MCHC 33.2 RDW Std Deviation 50.4 H RDW Coeff of Paulie 14.3 Plt Count 163 MPV 10.1 Immature Gran % (Auto) 0.300 Neut % (Auto) 80.8 H Lymph % (Auto) 10.7 L Thurston % (Auto) 6.3 Eos % (Auto) 1.3 Baso % (Auto) 0.6 Absolute Neuts (auto) 5.4 Absolute Lymphs (auto) 0.72 L Nucleated RBC % 0 Sodium 140 Potassium 4.1 Chloride 112 H Carbon Dioxide 23.0 Anion Gap 5 BUN 21 H Creatinine 1.66 H Estim Creat Clear Calc 31.33 Est GFR (MDRD) Af Amer 51 L Est GFR (MDRD) Non-Af 42 L BUN/Creatinine Ratio 12.7 Glucose 112 H Calcium 8.8 Troponin I High Sens 13 B-Natriuretic Peptide 389.6 H Radiography Diagnostic Testing: Clinical Impression(s) from Imaging Studies Brain CT 08/18/23 14:58 IMPRESSION: Chronic changes as described with no acute intracranial hemorrhage or space-occupying lesion. Electronically Signed: Aide Thrasher MD at 16:52 EST , Chest X-Ray 08/18/23 15:47 IMPRESSION: No acute cardiopulmonary disease. Electronically Signed: Aide Thrasher MD at 16:51 EST , Discharge Plan Triage Chief Complaint: Confusion ED Provider: Chirag Steiner Dx/Rx/DC Orders Instructions: Coronavirus Disease 2019 (COVID-19): Overview Prescriptions: No Action aspirin 81 MG tablet,chewable 81 mg PO DAILY ondansetron 4 mg tablet,disintegrating 4 mg PO Q8H PRN (Reason: nausea and vomiting) Qty: 10 0RF cimetidine 400 mg tablet 400 mg PO BID donepezil 5 mg tablet 5 mg PO DAILY fluoxetine 20 mg capsule 20 mg PO DAILY folic acid 400 mcg tablet 400 mcg PO DAILY hydroxyzine pamoate [Vistaril] 25 mg capsule 25 mg PO Q6H PRN (Reason: AGITATION ) isosorbide mononitrate 10 mg tablet 10 mg PO DAILY insulin glargine [Lantus U-100 Insulin] 100 unit/mL solution 30 unit subcut QPM loratadine [Allerclear] 10 mg tablet 10 mg PO DAILY melatonin 3 mg capsule 3 mg PO QHS memantine 10 mg tablet 10 mg PO BID metformin 500 mg tablet 500 mg PO BID metoprolol succinate 100 mg tablet extended release 24 hr 100 mg PO DAILY trazodone 100 mg tablet 100 mg PO QHS cyanocobalamin (vitamin B-12) [Vitamin B-12] 1,000 mcg tablet 1,000 mcg PO DAILY cholecalciferol (vitamin D3) [Vitamin D3] 50 mcg (2,000 unit) capsule 50 mcg PO DAILY levothyroxine 137 mcg tablet 137 mcg PO DAILY lisinopril 10 mg tablet 10 mg PO DAILY medroxyprogesterone 10 mg tablet 10 mg PO DAILY citalopram 10 mg tablet Patient Comments: TAKE 1 TABLET BY MOUTH ONCE DAILY FOR 90 DAYS Primary Care Provider: Klaus Fagan Chi Referrals: Klaus Fagan Chi, MD [Primary Care Provider] -
--- NOTE | 2023-08-18 14:58 | CT_ITS ---
STUDY: CT BRAIN WITHOUT CONTRAST REASON FOR EXAM: Male, 88 years old. confusion RADIATION DOSAGE (If Supplied By Facility): CTDIvol = ( 44.99 ) mGy, DLP = ( 779.24 ) mGycm TECHNIQUE: Transaxial CT imaging of the brain was performed without administration of intravenous contrast material. Individualized dose optimization techniques were used for this CT. COMPARISON: CT brain 03/08/2023. FINDINGS: Normal soft tissue structures. Normal calvarium. There is mild cerebral atrophy with widening of the extra-axial spaces and ventricular dilatation. There are areas of decreased attenuation within the white matter tracts of the supratentorial brain, consistent with mild microvascular disease changes. Normal basal ganglia and thalami. Normal brainstem. Normal cerebellum. There is no intracranial hemorrhage. There are no findings of an acute ischemic infarction. Mucosal thickening involving the bilateral maxillary, ethmoids and frontal sinuses consistent with chronic sinusitis. CT/Brain/Head without Contrast IMPRESSION: Chronic changes as described with no acute intracranial hemorrhage or space-occupying lesion. Electronically Signed: Aide Thrasher MD at 16:52 EST ,
--- NOTE | 2023-08-18 14:59 | EKG12_ITS ---
Test Reason : CONFUSED Blood Pressure : / mmHG Vent. Rate : 077 BPM Atrial Rate : 077 BPM P-R Int : 162 ms QRS Dur : 102 ms QT Int : 376 ms P-R-T Axes : 004 040 -44 degrees QTc Int : 425 ms Normal sinus rhythm T wave abnormality, consider inferior ischemia Abnormal ECG Confirmed by SUSANNA GUNN, DIOGENES ([id number]), international editorial producer KADEEM SINGER ([id number]) on 08/20/2023 7:00:48 AM Referred By: Confirmed By:DIOGENES MULLINS MD
[2023-08-18] MEDS: 0.9% Normal Saline (500mL Bag) 500 ML 999 ML IV (15:10)
[2023-08-18] MEDS: Acetaminophen 325 MG Tablet PO (15:22)
[2023-08-18] MEDS: Ketorolac 15 MG/ML Vial IV (15:23)
[2023-08-18 15:42] LABS: Absolute Lymphocyte Count 0.72 X10^3/uL (0.83-4.51); Absolute Neutrophil Count 5.4 X10^3/uL (2.0-7.7); Basophil# 0.04 X10^3/uL; Basophil% 0.6 % (0-1); Eosinophil# 0.09 X10^3/uL; Eosinophils% 1.3 % (0-5); Hematocrit 37.6 % (40-54); Hemoglobin 12.5 g/dL (13.0-16.5); Lymphocyte # 0.72 X10^3/ul (0.83-4.51); Lymphocyte % 10.7 % (19-41); Mean Corp Hgb Conc 33.2 g/dL (32-36); Mean Corpuscular Hgb 31.8 pg (27.0-32.0); Mean Corpuscular Volume 95.7 fL (80-94); Mean Platelet Vol. 10.1 fl (6.2-12.0); Monocyte# 0.42 X10^3/uL; Monocyte% 6.3 % (0-10); NRBC Flagged by Analyzer 0 % (0-5); Neutrophil # 5.41 X10^3/uL (2.7-7.7); Neutrophil % 80.8 % (47-70); Platelet Count 163 K/mm3 (150-450); RBC Distribution Width CV 14.3 % (11.6-14.6); RBC Distribution Width SD 50.4 fl (35.1-43.9); Red Blood Count 3.93 M/mm3 (4.6-6.2); White Blood Count 6.7 K/mm3 (4.4-11.0)
--- NOTE | 2023-08-18 15:47 | RAD_ITS ---
STUDY: X-RAY CHEST REASON FOR EXAM: Male, 88 years old. cough TECHNIQUE: Single AP portable view of the chest. COMPARISON: 03/08/2023. FINDINGS: The lungs are underexpanded with mild crowding of central markings, otherwise clear. There is no demonstrated pleural abnormality. Normal size heart. Normal mediastinum and ramy. Normal visualized pulmonary arteries. Normal visualized aortic arch and descending thoracic aorta. Normal visualized thoracic spine. Normal visualized ribs, clavicles, and shoulders. There is no demonstrated abnormality of the visualized soft tissue structures of the upper abdomen. RAD/Chest 1 View (Portable) IMPRESSION: No acute cardiopulmonary disease. Electronically Signed: Aide Thrasher MD at 16:51 EST ,
[2023-08-18 15:56] LABS: Anion Gap 5 (5-15); BUN 21 mg/dL (7-18); BUN/Creat Ratio 12.7 RATIO (10-20); Calcium,Total 8.8 mg/dL (8.5-10.1); Chloride 112 mmol/L (98-107); Creatinine, Serum 1.66 mg/dL (0.70-1.30); EST Glomerular Filtration Rate 42 mL/min (>60); Est Glom Filt Rate - Afr Amer 51 mL/min (>60); Estimated Creatinine Clearance 31.33 ml/min; Glucose 112 mg/dL (74-106); Potassium 4.1 mmol/L (3.5-5.1); Sodium Level 140 mmol/L (136-145); Troponin-I HS 13 pg/mL (3.0-78.0)
[2023-08-18 16:49] LABS: BNP,B-Type NATRIURETIC PEPTIDE 389.6 pg/mL (0-100)
[2023-08-18 17:11] VITALS: BP 117/58; PULSE 71; RESP 17; TEMP 36.8; O2SAT 99
--- NOTE | 2023-08-18 18:39 | ED.RN ---
report called to Renato with patient update
[2023-08-18 18:46] VITALS: BP 113/57; PULSE 75; RESP 16; TEMP 37; O2SAT 97
== END 2023-08-18 19:39 | disposition home or self-care (01) ==
PROVIDERS: Emergency Provider Emergency Medicine; PCP Family Medicine Geriatric Medicine; Visit Provider Emergency Medicine
DX: U07.1 COVID-19 (principal); G30.9 Alzheimer's disease, unspecified; E11.9 Type 2 diabetes mellitus without complications; E03.9 Hypothyroidism, unspecified; I10 Essential (primary) hypertension; I25.2 Old myocardial infarction; Z79.899 Other long term (current) drug therapy; Z79.84 Long term (current) use of oral hypoglycemic drugs; Z95.5 Presence of coronary angioplasty implant and graft; Z87.891 Personal history of nicotine dependence
CPT/HCPCS: 70450; 71045; 80048; 83880; 84484; 85025; 87631; 93005; 96374; 99285; J7030; A4216

== ENCOUNTER → 2023-08-31 | Outpatient (CLI) | payer MEDICARE, SELFPAY ==
[2023-08-31 17:00] LABS: Hematocrit 41.7 % (40-54); Hemoglobin 13.2 g/dL (13.0-16.5); Mean Corp Hgb Conc 31.7 g/dL (32-36); Mean Corpuscular Volume 97.9 fL (80-94); Mean Platelet Vol. 10.1 fl (6.2-12.0); Platelet Count 252 K/mm3 (150-450); RBC Distribution Width CV 14.3 % (11.6-14.6); RBC Distribution Width SD 51.6 fl (35.1-43.9); Red Blood Count 4.26 M/mm3 (4.6-6.2); White Blood Count 7.5 K/mm3 (4.4-11.0)
[2023-08-31 17:09] LABS: Albumin, Serum 3.1 g/dL (3.2-5.0); BUN 19 mg/dL (7-18); BUN/Creat Ratio 12.6 RATIO (10-20); Calcium,Total 9.2 mg/dL (8.5-10.1); Chloride 111 mmol/L (98-107); Creatinine, Serum 1.51 mg/dL (0.70-1.30); EST Glomerular Filtration Rate 47 mL/min (>60); Est Glom Filt Rate - Afr Amer 56 mL/min (>60); Glucose 141 mg/dL (74-106); Phosphorus 2.6 mg/dL (2.5-4.9); Potassium 4.2 mmol/L (3.5-5.1); Sodium Level 142 mmol/L (136-145)
[2023-09-01 15:38] LABS: PTHIN 35.2 pg/mL (18.4-80.1)
== END | disposition home or self-care (01) ==
LOC: POLAB3 15:41
PROVIDERS: PCP Family Medicine Geriatric Medicine; Visit Provider Internal Medicine Nephrology
DX: N18.32 Chronic kidney disease, stage 3b (principal)
CPT/HCPCS: 36415; 80069; 83970; 85027

== ENCOUNTER → 2023-10-04 | Outpatient (REF) | payer MEDICARE, SELFPAY ==
[2023-10-05 08:43] LABS: Bacteria 0 SEEN /hpf (None Seen); Mucous, Urine 0 SEEN /hpf (<or=2+); Red Blood Cells-Urine 0 SEEN /hpf (0-5); Squamous Epithelial Cells - UA 0 SEEN /hpf (0-5)
[2023-10-05 08:54] LABS: Color, Urine Yellow (Yellow); Glucose, Dipstick Normal (Normal); Ketone-Dipstick 5 mg/dl (Negative); Leukocyte Esterase-Dipstick 25 /ul (Negative); Nitrite-Dipstick Negative (Negative); Occult Blood-Urine Negative /ul (Negative); Protein-Dipstick 15 mg/dl (Negative); Urine Bilirubin Dipstick Negative (Negative); Urine Clarity Clear (Clear); Urine Urobilinogen 1 mg/dl (Normal)
[2023-10-05 09:17] LABS: White Blood Cells 0-5 SEEN /hpf (0-5)
== END ==
LOC: OLS.BROOKB 19:00
PROVIDERS: PCP Family Medicine Geriatric Medicine
DX: R41.82 Altered mental status, unspecified (principal)
CPT/HCPCS: 81001; 87086; 87088

== ENCOUNTER → 2023-10-18 | Outpatient (CLI) | payer MEDICARE, SELFPAY ==
[2023-10-18 13:08] LABS: Absolute Lymphocyte Count 2.11 X10^3/uL (0.83-4.51); Absolute Neutrophil Count 5.6 X10^3/uL (2.0-7.7); Basophil# 0.07 X10^3/uL; Basophil% 0.8 % (0-1); Eosinophil# 0.41 X10^3/uL; Eosinophils% 4.6 % (0-5); Hematocrit 42.9 % (40-54); Lymphocyte # 2.11 X10^3/ul (0.83-4.51); Lymphocyte % 23.8 % (19-41); Mean Corp Hgb Conc 32.6 g/dL (32-36); Mean Corpuscular Hgb 31.8 pg (27.0-32.0); Mean Corpuscular Volume 97.5 fL (80-94); Mean Platelet Vol. 10.2 fl (6.2-12.0); Monocyte# 0.61 X10^3/uL; Monocyte% 6.9 % (0-10); NRBC Flagged by Analyzer 0 % (0-5); Neutrophil # 5.62 X10^3/uL (2.7-7.7); Neutrophil % 63.6 % (47-70); Platelet Count 222 K/mm3 (150-450); RBC Distribution Width CV 13.5 % (11.6-14.6); RBC Distribution Width SD 48.9 fl (35.1-43.9); White Blood Count 8.9 K/mm3 (4.4-11.0)
[2023-10-18 13:32] LABS: Vitamin D,25 Hydroxy 58.3 ng/mL
[2023-10-18 13:53] LABS: ALB/GLOB Ratio 1.1 RATIO (0.9-2.4); AST(SGOT) 7 U/L (15-37); Alanine Aminotransfer ALT/SGPT 11 U/L (16-61); Albumin, Serum 3.3 g/dL (3.2-5.0); Alkaline Phosphatase 53 U/L (45-117); Anion Gap 5 (5-15); BUN 18 mg/dL (7-18); BUN/Creat Ratio 11.6 RATIO (10-20); Calcium,Total 8.9 mg/dL (8.5-10.1); Chloride 111 mmol/L (98-107); Creatinine, Serum 1.55 mg/dL (0.70-1.30); EST Glomerular Filtration Rate 45 mL/min (>60); Est Glom Filt Rate - Afr Amer 55 mL/min (>60); Globulin 3.1 g/dL (2.2-4.2); Glucose 117 mg/dL (74-106); Potassium 4.2 mmol/L (3.5-5.1); Protein, Total 6.4 g/dL (6.4-8.2); Sodium Level 142 mmol/L (136-145); Thyroid Stim Hormone (TSH) 2.21 uIU/mL (0.358-3.74)
== END | disposition home or self-care (01) ==
LOC: LAB 11:56
PROVIDERS: PCP Family Medicine Geriatric Medicine; Referring Provider Family Medicine Geriatric Medicine; Visit Provider Family Medicine Geriatric Medicine
DX: E11.65 Type 2 diabetes mellitus with hyperglycemia (principal); E55.9 Vitamin D deficiency, unspecified; I10 Essential (primary) hypertension
CPT/HCPCS: 36415; 80053; 82306; 84443; 85025

== ENCOUNTER 2024-02-09 18:51 | Emergency (ER) | payer MEDICARE, SELFPAY ==
[2024-02-09 18:53] VITALS: BP 144/91; PULSE 69; RESP 12; TEMP 37.1; O2SAT 98; BMI 26.4
--- NOTE | 2024-02-09 19:01 | EDS_ITS ---
HPI HPI - Psych History of Present Illness Chief Complaint: Mental Health Informant: patient and SNF Limited: dementia Onset/Context/Timing Onset: Today Timing: Waxes and wanes Associated Symptoms Associated Symptoms - Psych: Positive for Agitated and Hostile Narrative Narrative: Patient presents with agitation and combative behavior from the extended care facility that became worse tonight. Patient is only alert and oriented to person and place at this time. Patient is a poor informant. Patient states he does not remember being combative or agitated. Currently, patient denies any symptoms. Patient does have a skin tear on his right hand. Patient does not know how that occurred. senior care staff also reports that patient has been refusing to take his medications. senior care staff reports the patient is normally alert and oriented to person and place. [facility] Medical History Dementia Lab test negative for COVID-19 virus Benign prostatic hyperplasia Myocardial infarct Diabetes Home Medications ?Medication ?Instructions ?Recorded ?Last Taken ?Type aspirin 81 mg chewable tablet 81 mg PO DAILY HEART HEALTH 11/30/20 Unknown History cholecalciferol (vitamin D3) 50 100 mcg PO DAILY SUPPLEMENT 03/08/23 Unknown History mcg (2,000 unit) capsule (Vitamin D3) cimetidine 400 mg tablet 400 mg PO Q8H ULCERS 03/08/23 Unknown History cyanocobalamin (vitamin B-12) 1,000 mcg PO DAILY SUPPLEMENT 03/08/23 Unknown History 1,000 mcg tablet (Vitamin B-12) donepezil 5 mg tablet 5 mg PO DAILY 03/08/23 Unknown History fluoxetine 20 mg capsule 20 mg PO DAILY EDEMA 03/08/23 Unknown History folic acid 400 mcg tablet 400 mcg PO DAILY SUPPLEMENT 03/08/23 Unknown History hydroxyzine pamoate 25 mg capsule 25 mg PO Q6H PRN AGITATION 03/08/23 Unknown History (Vistaril) loratadine 10 mg tablet 10 mg PO DAILY ALLERGIES 03/08/23 Unknown History (Allerclear) melatonin 3 mg capsule 3 mg PO QHS INSOMNIA 03/08/23 Unknown History memantine 10 mg tablet 10 mg PO BID MEMORY 03/08/23 Unknown History metformin 500 mg tablet 500 mg PO BID BLOOD SUGARS 03/08/23 Unknown History metoprolol succinate 100 mg 100 mg PO DAILY BLOOD PRESSURE 03/08/23 Unknown History tablet,extended release 24 hr trazodone 100 mg tablet 100 mg PO QHS SLEEP 03/08/23 Unknown History levothyroxine 137 mcg tablet 137 mcg PO DAILY THYROID 08/18/23 Unknown History lisinopril 10 mg tablet 10 mg PO DAILY BLOOD PRESSURE 08/18/23 Unknown History medroxyprogesterone 10 mg tablet 10 mg PO DAILY HORMONES 08/18/23 Unknown History fluoxetine 40 mg capsule 40 mg PO DAILY 02/09/24 Unknown History insulin glargine 100 unit/mL (3 10 unit subcut QHS 02/09/24 Unknown History mL) subcutaneous pen (Lantus Solostar U-100 Insulin) isosorbide mononitrate 30 mg 15 mg PO DAILY 02/09/24 Unknown History tablet,extended release 24 hr lorazepam 0.5 mg tablet 0.5 mg PO Q12H dementia agitation 02/09/24 Unknown History quetiapine 50 mg tablet 50 mg PO BID 02/09/24 Unknown History valproic acid (as sodium salt) 250 125 mg PO Q12H 02/09/24 Unknown History mg/5 mL oral solution Allergy/AdvReac Type Severity Reaction Status Date / Time simvastatin Allergy PT UNSURE Verified 02/09/24 18:56 OF REACTION Surgical History History of coronary artery stent placement Social History Smoking Status: Former smoker ROS ROS ED Review of Systems ROS Unobtainable: due to mental condition and due to mental status EXAM Physical Exam Const Vital Signs: 02/09/24 18:53 02/09/24 19:51 02/09/24 21:00 Temperature 98.7 F Temperature Source Temporal Pulse Rate 69 82 63 Respiratory Rate 12 16 18 Blood Pressure 144/91 H 142/74 H 159/97 H Blood Pressure Mean 108 96 117 Pulse Ox 98 99 96 Oxygen Delivery Method Room Air Room Air Room Air 02/09/24 22:00 Temperature Temperature Source Pulse Rate 78 Respiratory Rate 16 Blood Pressure 130/66 H Blood Pressure Mean 87 Pulse Ox 99 Oxygen Delivery Method Room Air Positive well nourished and well developed General Appearance ED: well developed and NAD HEENT Reports moist mucous membranes normocephalic and atraumatic Neck supple and no JVD Resp normal respiratory effort and clear to auscultation bilaterally Cardio Rate: regular rate Rhythm: regular rhythm GI non-tender and non-distended Palpation: soft Neuro CN's II-XII intact bilaterally and no sensory deficits noted Simón Coma Scale: document GCS findings Spontaneous Obeys Commands Confused 14 Sensorium / Orientation: alert, oriented to person and oriented to place Motor Exam: strength 5/5 throughout Psych cooperative and activity/motor behavior normal Appearance: grossly normal Attitude: calm Activity / Motor Behavior: appropriate eye contact Speech: normal speech Thought Process: confused MDM MDM MDM Narrative Medical decision making narrative: Differential diagnosis includes urinary tract infection, intracranial bleeding, stroke, pneumonia, electrolyte abnormality, substance abuse, and dementia with behavioral disturbance. CT scan of the brain will be obtained to assess for intracranial bleeding and stroke. Chest x-ray will be obtained to assess for pneumonia and pneumothorax. CBC will be obtained to assess for leukocytosis and anemia. Basic metabolic profile will be obtained to assess for electrolyte abnormality and renal function. Urinalysis will be obtained to assess for urinary tract infection and hematuria. Lab Data Attestation: I reviewed the patient's lab results. Lab results narrative: CBC was reviewed. There is a mild anemia with a hemoglobin of 12.4 and hematocrit 38.1. Basic metabolic profile was reviewed. BUN was 27 and creatinine was 1.52. Glucose was mildly elevated at 136. These are consistent with previous results. Urinalysis was reviewed. There is no evidence of urinary tract infection or hematuria. Urine drug screen was reviewed and was negative. Serum alcohol level was reviewed and was less than 3.0. Labs: Laboratory Results - last 24 hr 02/09/24 20:28 WBC 6.3 RBC 4.04 L Hgb 12.4 L Hct 38.1 L MCV 94.3 H MCH 30.7 MCHC 32.5 RDW Std Deviation 45.9 H RDW Coeff of Paulie 13.3 Plt Count 214 MPV 9.8 Immature Gran % (Auto) 0.500 Neut % (Auto) 66.5 Lymph % (Auto) 24.8 [place] % (Auto) 7.0 Eos % (Auto) 0.6 Baso % (Auto) 0.6 Absolute Neuts (auto) 4.2 Absolute Lymphs (auto) 1.57 Nucleated RBC % 0 Sodium 138 Potassium 4.4 Chloride 106 Carbon Dioxide 26.0 Anion Gap 6 BUN 27 H Creatinine 1.52 H Estim Creat Clear Calc 31.41 Est GFR (MDRD) Af Amer 56 L Est GFR (MDRD) Non-Af 46 L BUN/Creatinine Ratio 17.8 Glucose 136 H Calcium 9.0 Urine Color Yellow Urine Clarity Clear Urine pH 7.0 Ur Specific [place] 1.010 Urine Protein Negative Urine Glucose (UA) Normal Urine Ketones Negative Urine Occult Blood Negative Urine Nitrite Negative Urine Bilirubin Negative Urine Urobilinogen Normal Ur Leukocyte Esterase 25 H Urine RBC 0 SEEN Urine WBC 0-5 SEEN Ur Squamous Epith Cells 0 SEEN Urine Bacteria 0 SEEN Urine Mucus 0 SEEN Urine Opiates Screen NEGATIVE Urine Methadone Screen NEGATIVE Ur Barbiturates Screen NEGATIVE Ur Phencyclidine Scrn NEGATIVE Ur Amphetamines Screen NEGATIVE MDMA (Ecstasy) Screen NEGATIVE U Benzodiazepines Scrn NEGATIVE Urine Cocaine Screen NEGATIVE U Cannabinoids Screen NEGATIVE Ur Drug Screen Comment Ethyl Alcohol < 3.0 Radiography Chest X-Ray - ED: 1 View, Read by ED Physician, Read by Radiologist and No Acute Disease Diagnostic Testing: Clinical Impression(s) from Imaging Studies Brain CT 02/09/24 20:35 IMPRESSION: No acute abnormality. Chronic microvascular ischemic disease. CT angiogram and/or MRI may be helpful to evaluate for acute infarct as clinically indicated. Electronically Signed: Luisa Jack MD at 20:49 EDT , Chest X-Ray 02/09/24 20:40 IMPRESSION: No evidence of active intrathoracic disease. Electronically Signed: Luisa Jack MD at 21:02 EDT , CT scan of the brain was obtained. There is no acute intracranial abnormality. There are chronic ischemic changes. This was interpreted by the radiologist and was also independently reviewed by myself. Portable 1 view chest x-ray was obtained. On my independent interpretation, lung garcia are clear. There is normal cardiac silhouette. Bony thorax is normal. There is no acute process noted. Radiologist also interpreted the x- ray and agrees. Treatment and Re-Evaluation Narrative: Grandson came in and stated that the patient is acting like his typical self. Patient has been calm and cooperative during his entire emergency department stay. There is no evidence of any infection. Grandson was amenable to having the patient discharged back to the extended care facility. Patient was instructed to follow-up with his primary care physician in 5 to 7 days. Patient and family were agreeable with the plan. All questions were answered. Discharge Plan Triage Chief Complaint: Mental Health ED Provider: Brian Claudio Dx/Rx/DC Orders Clinical Impression: Agitation due to dementia, Dementia Instructions: ED CAREGIVER SUPPORT for DEMENTIA Prescriptions: No Action aspirin 81 MG tablet,chewable 81 mg PO DAILY cimetidine 400 mg tablet 400 mg PO Q8H donepezil 5 mg tablet 5 mg PO DAILY fluoxetine 20 mg capsule 20 mg PO DAILY Patient Comments: take w/ 40mg capsule to reach a total daily dose of 60mg folic acid 400 mcg tablet 400 mcg PO DAILY hydroxyzine pamoate [Vistaril] 25 mg capsule 25 mg PO Q6H PRN (Reason: AGITATION ) loratadine [Allerclear] 10 mg tablet 10 mg PO DAILY melatonin 3 mg capsule 3 mg PO QHS memantine 10 mg tablet 10 mg PO BID metformin 500 mg tablet 500 mg PO BID metoprolol succinate 100 mg tablet extended release 24 hr 100 mg PO DAILY trazodone 100 mg tablet 100 mg PO QHS cyanocobalamin (vitamin B-12) [Vitamin B-12] 1,000 mcg tablet 1,000 mcg PO DAILY cholecalciferol (vitamin D3) [Vitamin D3] 50 mcg (2,000 unit) capsule 100 mcg PO DAILY levothyroxine 137 mcg tablet 137 mcg PO DAILY lisinopril 10 mg tablet 10 mg PO DAILY medroxyprogesterone 10 mg tablet 10 mg PO DAILY fluoxetine 40 mg capsule 40 mg PO DAILY Rx Instructions: take w/ 20mg capsule to reach a total daily dose of 60mg isosorbide mononitrate 30 mg tablet extended release 24 hr 15 mg PO DAILY Rx Instructions: take half tablet by mouth in the morning for heart disease insulin glargine [Lantus Solostar U-100 Insulin] 100 unit/mL (3 mL) insulin pen 10 unit subcut QHS lorazepam 0.5 mg tablet 0.5 mg PO Q12H quetiapine 50 mg tablet 50 mg PO BID valproic acid (as sodium salt) 250 mg/5 mL solution 125 mg PO Q12H Primary Care Provider: Klaus Fagan Chi Referrals: Klaus Fagan Chi, MD [Primary Care Provider] - 3-5 Days Print Language: Luxembourgish Disposition Disposition: [facility] Facility Discharge Location: Other SNF not listed
[2024-02-09 19:51] VITALS: BP 142/74; PULSE 82; RESP 16; O2SAT 99
[2024-02-09 20:34] LABS: Bacteria 0 SEEN /hpf (None Seen); Mucous, Urine 0 SEEN /hpf (<or=2+); Red Blood Cells-Urine 0 SEEN /hpf (0-5); Squamous Epithelial Cells - UA 0 SEEN /hpf (0-5)
--- NOTE | 2024-02-09 20:35 | CT_ITS ---
INDICATION: AMS EXAMINATION: CT BRAIN - CT Head or Brain W/O Contrast Injection TECHNIQUE: Multiple axial images were obtained of the head without intravenous contrast. The protocol utilizes one or more of the following dose reduction techniques: automated exposure control, adjustment of mA and/or kV according to patient size,and/or use of iterative reconstruction technique. IV Contrast dosage and agent: None. RADIATION DOSAGE (If Supplied By Facility): CTDIvol = ( 44.99 ) mGy, DLP = ( 779.24 ) mGycm COMPARISON: CT head 08/18/2023 FINDINGS: BRAIN: No acute bleed. No edema. Mild decreased attenuation in the periventricular white matter bilaterally. Almanzar-white matter differentiation is maintained. Arterial calcifications. VENTRICLES AND SULCI: Ventricles and sulci are prominent. EXTRA-AXIAL: No hemorrhage, fluid collection, or mass. CALVARIUM / SKULL BASE: Unremarkable. FACE/SINUSES: Mucosal thickening in the maxillary sinuses. SOFT TISSUES: Unremarkable. CT/Brain/Head without Contrast IMPRESSION: No acute abnormality. Chronic microvascular ischemic disease. CT angiogram and/or MRI may be helpful to evaluate for acute infarct as clinically indicated. Electronically Signed: Luisa Jack MD at 20:49 EDT ,
[2024-02-09 20:36] LABS: Absolute Lymphocyte Count 1.57 X10^3/uL (0.83-4.51); Absolute Neutrophil Count 4.2 X10^3/uL (2.0-7.7); Basophil# 0.04 X10^3/uL; Basophil% 0.6 % (0-1); Eosinophil# 0.04 X10^3/uL; Eosinophils% 0.6 % (0-5); Hematocrit 38.1 % (40-54); Hemoglobin 12.4 g/dL (13.0-16.5); Lymphocyte # 1.57 X10^3/ul (0.83-4.51); Lymphocyte % 24.8 % (19-41); Mean Corp Hgb Conc 32.5 g/dL (32-36); Mean Corpuscular Hgb 30.7 pg (27.0-32.0); Mean Corpuscular Volume 94.3 fL (80-94); Mean Platelet Vol. 9.8 fl (6.2-12.0); Monocyte# 0.44 X10^3/uL; NRBC Flagged by Analyzer 0 % (0-5); Neutrophil # 4.21 X10^3/uL (2.7-7.7); Neutrophil % 66.5 % (47-70); Platelet Count 214 K/mm3 (150-450); RBC Distribution Width CV 13.3 % (11.6-14.6); RBC Distribution Width SD 45.9 fl (35.1-43.9); Red Blood Count 4.04 M/mm3 (4.6-6.2); White Blood Count 6.3 K/mm3 (4.4-11.0)
--- NOTE | 2024-02-09 20:40 | RAD_ITS ---
INDICATION: confusion EXAMINATION/TECHNIQUE: X-RAY - XR Chest 1 View COMPARISON: 08/18/2023 FINDINGS: LINES/DEVICES: None. LUNGS: No consolidation. No pneumothorax. MEDIASTINUM: Unremarkable. CARDIAC SILHOUETTE: Not enlarged. BONES AND SOFT TISSUES: No acute abnormalities. Surgical clips in the upper abdomen. RAD/Chest 1 View (Portable) IMPRESSION: No evidence of active intrathoracic disease. Electronically Signed: Luisa Jack MD at 21:02 EDT ,
[2024-02-09 20:54] LABS: Color, Urine Yellow (Yellow); Glucose, Dipstick Normal (Normal); Ketone-Dipstick Negative (Negative); Leukocyte Esterase-Dipstick 25 /ul (Negative); Nitrite-Dipstick Negative (Negative); Occult Blood-Urine Negative /ul (Negative); Protein-Dipstick Negative (Negative); Urine Bilirubin Dipstick Negative (Negative); Urine Clarity Clear (Clear); Urine Urobilinogen Normal (Normal)
[2024-02-09 20:56] LABS: Alcohol, Blood (Medical)-Serum < 3.0 mg/dL
[2024-02-09 20:57] LABS: White Blood Cells 0-5 SEEN /hpf (0-5)
[2024-02-09 20:58] LABS: Anion Gap 6 (5-15); BUN 27 mg/dL (7-18); BUN/Creat Ratio 17.8 RATIO (10-20); Chloride 106 mmol/L (98-107); Creatinine, Serum 1.52 mg/dL (0.70-1.30); EST Glomerular Filtration Rate 46 mL/min (>60); Est Glom Filt Rate - Afr Amer 56 mL/min (>60); Estimated Creatinine Clearance 31.41 ml/min; Glucose 136 mg/dL (74-106); Potassium 4.4 mmol/L (3.5-5.1); Sodium Level 138 mmol/L (136-145)
[2024-02-09 21:00] VITALS: BP 159/97; PULSE 63; RESP 18; O2SAT 96
[2024-02-09 21:01] LABS: Amphetamine Urine VISTA NEGATIVE (<1000 ng/mL); Barbiturate Urine VISTA NEGATIVE (< 200 ng/mL); Benzodiazepine Urine VISTA NEGATIVE (< 200 ng/mL); Cocaine Urine VISTA NEGATIVE (< 300 ng/mL); Ecstacy Urine VISTA NEGATIVE (< 500 ng/mL); Methadone Urine VISTA NEGATIVE (< 300 ng/mL); PCP Urine VISTA NEGATIVE (< 25 ng/mL); THC Urine VISTA NEGATIVE (< 50 ng/mL); Vista UDS pH Range 7
[2024-02-09 22:00] VITALS: BP 130/66; PULSE 78; RESP 16; O2SAT 99
[2024-02-09 23:00] VITALS: BP 115/56; PULSE 68; RESP 16; O2SAT 97
[2024-02-09 23:29] VITALS: BP 155/70; PULSE 84; RESP 16; TEMP 36.9; O2SAT 99
--- NOTE | 2024-02-09 23:40 | ED.RN ---
REPORT CALLED TO [facility] AT THIS TIME.
== END 2024-02-09 23:41 | disposition skilled nursing facility (03) ==
PROVIDERS: Emergency Provider Emergency Medicine; PCP Family Medicine Geriatric Medicine; Visit Provider Emergency Medicine
DX: F03.90 Unspecified dementia, unspecified severity, without behavioral disturbance, psychotic disturbance, mood disturbance, and anxiety (principal); E11.9 Type 2 diabetes mellitus without complications; Z79.4 Long term (current) use of insulin; S61.411A Laceration without foreign body of right hand, initial encounter; I25.2 Old myocardial infarction; Z87.891 Personal history of nicotine dependence; Z79.82 Long term (current) use of aspirin; Z79.899 Other long term (current) drug therapy; Z79.84 Long term (current) use of oral hypoglycemic drugs; Z95.5 Presence of coronary angioplasty implant and graft; X58.XXXA Exposure to other specified factors, initial encounter
CPT/HCPCS: 70450; 71045; 80048; 80307; 80320; 81001; 85025; 99282; G0480